=== PATIENT | male | born 1960 | race Caucasian/White ===

== ENCOUNTER 2016-07-18 11:05 | Emergency (ER) | payer MEDICARE, MEDICAID ==
[~2016-07-18] VITALS: Ht 188 cm; Wt 175.0 kg
[~2016-07-18 11:05] MED LIST: ATARAX 25MG25 MG/TAB PO; GLUCOPHAGE500 MG/TAB PO; HCTZ 25MG TAB25 MG PO; K-DUR 2020 MEQ PO; LASIX 20MG TABL20 MG PO; LEXAPRO20 MG PO; LIPITOR 80MG80 MG PO; LORTAB 7.5/5001 TAB PO; NASONEX SPRAY17 GM NS; NITRO-DUR0.4 MG/PAT TD; NORCO 325 MG-7.1 TAB PO; NORVASC 10MG10 MG PO; PRINIVIL20 MG PO; PROAIR HFA0.09 MG/AC IH; RT ADVAIR 228 DISKUS IH; SEROQUEL 2525 MG/TAB PO; ZAROXOLYN5 MG PO; ZETIA 10MG TAB10 MG PO
[2016-07-18 11:10] VITALS: BP 188/86; TEMP 98.6
[2016-07-18] MEDS ORDERED: NORCO 325 MG-51 TAB PO (12:39)
[2016-07-18 13:12] VITALS: PULSE 80
== END 2016-07-18 13:13 | disposition home or self-care (01) ==
LOC: COL.ER 11:05
DX: S43.402A Unspecified sprain of left shoulder joint, initial encounter (principal); S46.912A Strain of unspecified muscle, fascia and tendon at shoulder and upper arm level, left arm, initial encounter; X50.0XXA Overexertion from strenuous movement or load, initial encounter
CPT/HCPCS: J2270; J2550

== ENCOUNTER → 2016-08-26 | Outpatient (CLI) | payer MEDICARE, MEDICAID ==
[~2016-08-26] MED LIST changes: +NORCO 325 MG-51 TAB PO
== END ==
LOC: COL.RAD 13:15
DX: Z53.8 Procedure and treatment not carried out for other reasons (principal)

== ENCOUNTER → 2016-10-06 | Outpatient (CLI) | payer MEDICARE, MEDICAID | LOC: COL.RAD 13:00 | DX: M25.512 Pain in left shoulder (principal) | CPT/HCPCS: J3301; Q9967 ==

== ENCOUNTER → 2017-03-17 | Outpatient (CLI) | payer MEDICARE, MEDICAID | LOC: COL.RAD 08:20 | DX: M25.512 Pain in left shoulder (principal) | CPT/HCPCS: J3301 ==

== ENCOUNTER → 2017-07-19 | Outpatient (REF) ==
[2017-07-19 15:58] LABS: PSA-TOTAL 0.64 ng/mL (0-4)
[2017-07-19 16:24] LABS: THYROID STIMULATING HORMONE 1.15 uIU/mL (0.465-4.680)
== END ==
LOC: ZLAB.WCH 15:09 → ZLAB.STJ 15:09
PROVIDERS: Internal Medicine
DX: Z01.89 Encounter for other specified special examinations (principal)
CPT/HCPCS: G0103

== ENCOUNTER → 2017-08-30 | Outpatient (CLI) | payer MEDICARE, MEDICAID | LOC: COL.RAD 13:00 | DX: M25.512 Pain in left shoulder (principal) | CPT/HCPCS: J3301; Q9967 ==

== ENCOUNTER → 2017-10-10 | Outpatient (REF) | LOC: ZLAB.WCH 16:03 | DX: Z01.89 Encounter for other specified special examinations (principal) ==

== ENCOUNTER → 2017-12-26 | Outpatient (CLI) | payer MEDICARE, MEDICAID | LOC: COL.RAD 10:20 | DX: M25.512 Pain in left shoulder (principal) | CPT/HCPCS: J3301; Q9967 ==

== ENCOUNTER 2018-02-23 16:37 | Outpatient (RCR) | payer OTHER | END 2018-05-24 | disposition home or self-care (01) | LOC: MKS.ESL.PT | DX: E11.42 Type 2 diabetes mellitus with diabetic polyneuropathy (principal) ==

== ENCOUNTER → 2018-04-07 | Outpatient (CLI) | payer MEDICARE, MEDICAID | LOC: COL.RAD 04-04 13:30 | DX: M25.512 Pain in left shoulder (principal) | CPT/HCPCS: J3301; Q9967 ==

== ENCOUNTER 2018-05-05 11:45 | Outpatient (RCR) | payer MEDICARE, MEDICAID | END 2018-05-24 | disposition home or self-care (01) | LOC: MKS.ESL.PT | DX: E11.42 Type 2 diabetes mellitus with diabetic polyneuropathy (principal); Z79.84 Long term (current) use of oral hypoglycemic drugs; Z79.899 Other long term (current) drug therapy | CPT/HCPCS: G8978-GP; G8979-GP ==

== ENCOUNTER → 2018-07-17 | Outpatient (CLI) | payer MEDICARE, MEDICAID | LOC: COL.RAD 13:00 | DX: M25.512 Pain in left shoulder (principal) | CPT/HCPCS: J3301; Q9967 ==

== ENCOUNTER → 2019-01-04 | Outpatient (CLI) | payer MEDICARE, MEDICAID | LOC: COL.RAD 12-25 09:00 | DX: M25.512 Pain in left shoulder (principal) | CPT/HCPCS: J3301; Q9967 ==

== ENCOUNTER 2020-10-21 15:30 | Inpatient (IN) | payer MEDICARE, MEDICAID ==
[2020-10-21] VITALS (66 sets, daily range): BP systolic 184; BP diastolic 91; PULSE 97; TEMP 100.8; O2SAT 71–100
[~2020-10-21] VITALS: Ht 190.5 cm; Wt 155.6 kg
[~2020-10-21 15:30] MED LIST changes: +GLUCOPHAGE XR500 M1 PO; -GLUCOPHAGE500 MG/TAB PO
[2020-10-21 16:36] LABS: ARTERIAL BLD GAS TCO2 CT 20.1; ARTERIAL BLOOD GAS HCO3 19.2 meq/L (22-26); ARTERIAL BLOOD GAS PCO2 30.3 mmHg (35-45); ARTERIAL BLOOD GAS PO2 60.3 mmHg (80-100); ARTERIAL BLOOD GAS pH 7.42 (7.35-7.45)
[2020-10-21 16:45] LABS: GRAN # 2.3 (1.4-6.5); GRAN % 64.7 % (42.2-75.2); HEMATOCRIT 41.5 % (42.0-52.0); HEMOGLOBIN 13.7 g/dl (13.5-18.0); LYMPH # 0.8 (1.2-3.4); LYMPH % 22.6 % (20.0-51.0); MEAN CELL VOLUME 81 fl (80.0-100.0); MEAN CORPUSCULAR HEMOGLOBIN 27 pg (27.0-31.0); MEAN CORPUSCULAR HGB CONC 33 g/dl (33.0-37.0); MEAN PLATELET VOLUME 9.8 fl (7.4-10.4); MONO # 0.4 (0.1-0.6); MONO % 11.9 % (1.7-9.3); PLATELET COUNT 125 K/mm3 (130-400); RED BLOOD COUNT 5.11 M/mm3 (4.20-5.60); REDCELL DISTRIBUTION WIDTH-CV 13.4 % (11.5-14.5)
[2020-10-21 16:50] LABS: ALBUMIN 3.9 gm/dL (3.5-5.0); BILIRUBIN,TOTAL 1.2 mg/dL (0.0-1.0); CALCIUM 8.2 mg/dL (8.4-10.2); CREATININE, serum 0.84 (0.66-1.25); TOTAL PROTEIN 7.4 gm/dL (6.4-8.2)
[2020-10-21 17:12] LABS: COLLECTION METHOD CLEAN CATCH
[2020-10-21 17:33] LABS: TROPONIN-I 0.101 ng/mL (0.000-0.035)
[2020-10-21 18:00] LABS: AMORPHOUS CRYSTAL Present /uL; PH 5 (5-8); SQUAMOUS EPITHELIAL None Seen /hpf; URINE APPEARANCE Hazy; URINE BACTERIA None Seen /hpf; URINE BILIRUBIN Negative (NEGATIVE); URINE BLOOD 2+ (NEGATIVE); URINE COLOR Yellow; URINE GLUCOSE 3+ (NEGATIVE); URINE KETONE 2+ (NEGATIVE); URINE LEUKOCYTE ESTERASE Negative (NEGATIVE); URINE NITRATE Negative (NEGATIVE); URINE PROTEIN(semi-quant) 2+ (NEGATIVE); URINE UROBILINOGEN Negative (NEGATIVE)
[2020-10-21 22:17] LABS: ARTERIAL BLD GAS O2 SATURATION 97.1 % (92-100); ARTERIAL BLOOD GAS BASE EXCESS -1.3 (-2-2); ARTERIAL BLOOD GAS PCO2 33.2 mmHg (35-45); ARTERIAL BLOOD GAS PO2 89.6 mmHg (80-100); ARTERIAL BLOOD GAS pH 7.44 (7.35-7.45)
--- NOTE | 2020-10-21 22:25 | NUR ---
Received report from ED nurseVeronica.
--- NOTE | 2020-10-21 22:42 | NUR ---
Patient arrives to ICU room 6 via wheelchair. Patient is able to ambulate with one-person assist to ICU bed. Initial BP of 184/91 with HR 97. All other vitals within normal limits. Patient arrives on BiPap, receiving 16/10 with 100% FiO2. Patient tolerating well. He is tachypneic, but does not appear labored or in distress. Arrives with one peripheral 20G IV to the right forearm. No fluids infusing at this time. Denies any pain. BLE noted to be red and edematous, roughly 2+, the right being larger than the left. The right pérez has a quarter-sized scab, some drainage noted. Feet are 2+ bilaterally, dry, and intact. No other skin issues noted.
--- NOTE | 2020-10-21 23:00 | NUR ---
Patient belongings include street clothes, shoes, a cell phone, glasses, and a single silver hoop earring in the left ear. Patient denies having hearing aids or dentures. He states his girlfriend, Amanda, took his wallet home. All belongings placed in patient closet per his request.
--- NOTE | 2020-10-21 23:55 | NUR ---
Patient uses call light asking for assistance to bathroom. Staff outside of room when patient called. Patient refused to wait for staff to enter room before removing BiPap mask and attempting to sit on the edge of bed. Staff at bedside within 3 minutes. Patient tachypneic, tachycardic, and diaphoretic from effort of sitting up. Oxygen saturations mid-high 80s. He takes several minutes to recover. Юлия, hospitalist, notified. Received orders to insert darnell catheter. A 16Fr darnell placed at approximately 2340, obtaining 850mL of yellow urine with sediment present upon placement. Юлия notified. Bed in lowest position, all alarms are on. Call light within reach.
[2020-10-22] VITALS (541 sets, daily range): BP systolic 61–167; BP diastolic 30–91; PULSE 85–100; TEMP 98.8–100.5; O2SAT 36–100
[2020-10-22 06:36] LABS: GRAN # 2.3 (1.4-6.5); GRAN % 68.8 % (42.2-75.2); HEMATOCRIT 41.2 % (42.0-52.0); HEMOGLOBIN 13.8 g/dl (13.5-18.0); LYMPH # 0.7 (1.2-3.4); LYMPH % 20.2 % (20.0-51.0); MEAN CELL VOLUME 80 fl (80.0-100.0); MEAN CORPUSCULAR HEMOGLOBIN 27 pg (27.0-31.0); MEAN CORPUSCULAR HGB CONC 34 g/dl (33.0-37.0); MEAN PLATELET VOLUME 9.3 fl (7.4-10.4); MONO # 0.4 (0.1-0.6); MONO % 10.4 % (1.7-9.3); PLATELET COUNT 125 K/mm3 (130-400); RED BLOOD COUNT 5.15 M/mm3 (4.20-5.60); REDCELL DISTRIBUTION WIDTH-CV 13.3 % (11.5-14.5)
[2020-10-22 06:50] LABS: CREATININE, serum 0.82 (0.66-1.25); POTASSIUM 3.7 mmol/L (3.4-5.0)
[2020-10-22 07:25] LABS: TROPONIN-I 0.142 ng/mL (0.000-0.035)
--- NOTE | 2020-10-22 10:55 | NUR ---
Lovely RN asked pt if he had a designated DPOA-pt responded that he did not. When asked if he wanted to establish a DPOA pt stated yes and designtated Amanda Cardenas. Pt signed completed form. Katt [place] notified.
--- NOTE | 2020-10-22 16:30 | NUR ---
housekeeping department worker spoke with patient's life partner, Mary Jane Cardenas [phone] and discussed need for legal next of kin. Worker advised that patient was able to verbalize he wanted Mary Jane to be his durable power of disability attorney and completed the document. Worker emailed this document and another form and encouraged patient to complete one for herself. Zhao states together she and patient have 8 daughters. Worker stressed that we will need to limit callers to the ICU and designate mary jane. Mary Jane verbalized understanding of the above information. Case management will follow and assist with securing a safe discharge plan.
--- NOTE | 2020-10-22 19:21 | NUR ---
175- PT spo2 probe changed out due to varying percentages being shown on monitor. PT SPO2 maintaining at 85% on [address] Torres notified, orders received for intubation. 180- Anesthesia paged 180- anesthesia returns call and will head in. 180- RT to patient room. Hospitalist notified of patient condition 1808- Verbal consent received from patient with Two RNs present to confirm. 1811- Latrell Swain CRNA to room. PT Vitals currently 71% 173/105 87. 182- Time out completed with RT, RN and GRAIN BUYER 1822- GRAIN BUYER gave fentanyl and Succinylcholine 1824- 1 mg vecuronium given by GRAIN BUYER 182- 200mg Propofol given by GRAIN BUYER 1825- ETT in place at 24 teeth size 8.0. Bilateral breath sounds ausculated 1828- 9 mg vecuronium given by GRAIN BUYER for a total of 10mg 1832- OG placed 67 teeth 18fr 1833- Xray to room.
--- NOTE | 2020-10-22 19:29 | NUR ---
Report given to JAROD Lora.
[2020-10-22 20:30] LABS: ARTERIAL BLD GAS O2 SATURATION 86.7 % (92-100); ARTERIAL BLD GAS TCO2 CT 29.8; ARTERIAL BLOOD GAS BASE EXCESS 2.7 (-2-2); ARTERIAL BLOOD GAS HCO3 28.4 meq/L (22-26); ARTERIAL BLOOD GAS PCO2 47.1 mmHg (35-45); ARTERIAL BLOOD GAS PO2 51.1 mmHg (80-100)
[2020-10-22 22:10] LABS: GASTROCCULT POSITIVE; pH GASTRIC CONTENTS 1
[2020-10-23] VITALS (820 sets, daily range): BP systolic 98–158; BP diastolic 67–87; PULSE 80–103; TEMP 98.4–100.5; O2SAT 71–100
--- NOTE | 2020-10-23 00:50 | NUR ---
RT WAS CALLED TO BEDSIDE TO ASSIST IN INTUBATION. LAUNDRY SORTER SUCCESSFULLY INTUBATED AT 1826, WITH AN 8.0 ETT 24 @ TEETH. VENT SETTINGS WERE GIVEN BY RN PER THE REQUEST OF . PEEP WAS TITRATED IMMEDIATELY DUE TO HYPOXIC EPISODES. ETT WAS ALSO ADVANCED 2CM POST INTUBATION, LEAVING AT 26 @ TEETH.
[2020-10-23 04:55] LABS: GRAN # 3.8 (1.4-6.5); GRAN % 73.2 % (42.2-75.2); HEMATOCRIT 40.6 % (42.0-52.0); HEMOGLOBIN 13.6 g/dl (13.5-18.0); LYMPH # 0.9 (1.2-3.4); LYMPH % 17.8 % (20.0-51.0); MEAN CELL VOLUME 81 fl (80.0-100.0); MEAN CORPUSCULAR HEMOGLOBIN 27 pg (27.0-31.0); MEAN CORPUSCULAR HGB CONC 34 g/dl (33.0-37.0); MEAN PLATELET VOLUME 9.6 fl (7.4-10.4); MONO # 0.5 (0.1-0.6); MONO % 8.6 % (1.7-9.3); PLATELET COUNT 160 K/mm3 (130-400); RED BLOOD COUNT 5.03 M/mm3 (4.20-5.60); REDCELL DISTRIBUTION WIDTH-CV 13.6 % (11.5-14.5)
[2020-10-23 05:14] LABS: ALBUMIN 3.4 gm/dL (3.5-5.0); BILIRUBIN,TOTAL 0.9 mg/dL (0.0-1.0); CALCIUM 7.5 mg/dL (8.4-10.2); CREATININE, serum 1.2 (0.66-1.25); MAGNESIUM 1.9 mg/dL (1.6-2.3); PHOSPHOROUS 4.3 mg/dL (2.5-4.5); POTASSIUM 3.4 mmol/L (3.4-5.0); TOTAL PROTEIN 6.9 gm/dL (6.4-8.2)
[2020-10-23 05:15] LABS: ARTERIAL BLD GAS O2 SATURATION 82.1 % (92-100); ARTERIAL BLD GAS TCO2 CT 29.3; ARTERIAL BLOOD GAS BASE EXCESS 2.4 (-2-2); ARTERIAL BLOOD GAS HCO3 27.9 meq/L (22-26); ARTERIAL BLOOD GAS PCO2 46.4 mmHg (35-45)
[2020-10-23 05:16] LABS: ARTERIAL BLOOD GAS PO2 45.6 mmHg (80-100)
--- NOTE | 2020-10-23 05:30 | NUR ---
Patient in prone position. No sedation vacation performed at this time.
--- NOTE | 2020-10-23 07:38 | NUR ---
Report given to JAROD Redman.
--- NOTE | 2020-10-23 17:00 | NUR ---
No sedation vacation at this time DT Vecuronium drip infusing.
--- NOTE | 2020-10-23 21:00 | NUR ---
SPOKE WITH DOM (GIRLFRIEND) GAVE UPDATE AND ANSWERED QUESTIONS.
[2020-10-24] VITALS (931 sets, daily range): BP systolic 120–146; BP diastolic 75–83; PULSE 85–111; TEMP 98.9–99; O2SAT 46–100
--- NOTE | 2020-10-24 05:00 | NUR ---
UNABLE TO COMPLETE SEDATION VACATION AT THIS TIME DUE TO PRONE POSITION AND VENT SETTINGS
[2020-10-24 05:03] LABS: HEMATOCRIT 44.8 % (42.0-52.0); HEMOGLOBIN 14.6 g/dl (13.5-18.0); MEAN CELL VOLUME 83 fl (80.0-100.0); MEAN CORPUSCULAR HEMOGLOBIN 27 pg (27.0-31.0); MEAN CORPUSCULAR HGB CONC 33 g/dl (33.0-37.0); MEAN PLATELET VOLUME 9.4 fl (7.4-10.4); PLATELET COUNT 171 K/mm3 (130-400); REDCELL DISTRIBUTION WIDTH-CV 13.6 % (11.5-14.5)
[2020-10-24 05:09] LABS: CALCIUM 7.3 mg/dL (8.4-10.2); CREATININE, serum 1.35 (0.66-1.25); MAGNESIUM 2.1 mg/dL (1.6-2.3); PHOSPHOROUS 5.5 mg/dL (2.5-4.5); POTASSIUM 3.5 mmol/L (3.4-5.0)
[2020-10-24 06:42] LABS: BAND 3 % (0-10); LYMPHOCYTE 27 % (20.0-51.0); NEUTROPHILS 65 % (42.0-75.2); PLATELET ESTIMATE NORMAL (NORMAL)
[2020-10-24 09:44] LABS: ARTERIAL BLD GAS O2 SATURATION 95.1 % (92-100); ARTERIAL BLD GAS TCO2 CT 38.8; ARTERIAL BLOOD GAS BASE EXCESS 5.2 (-2-2); ARTERIAL BLOOD GAS HCO3 36.2 meq/L (22-26); ARTERIAL BLOOD GAS pH 7.25 (7.35-7.45)
[2020-10-24 09:49] LABS: ARTERIAL BLOOD GAS PCO2 85.4 mmHg (35-45)
[2020-10-24 12:09] LABS: ARTERIAL BLD GAS O2 SATURATION 95.5 % (92-100); ARTERIAL BLD GAS TCO2 CT 32.9; ARTERIAL BLOOD GAS BASE EXCESS 4.6 (-2-2); ARTERIAL BLOOD GAS HCO3 31.2 meq/L (22-26); ARTERIAL BLOOD GAS PCO2 54.4 mmHg (35-45); ARTERIAL BLOOD GAS pH 7.38 (7.35-7.45)
--- NOTE | 2020-10-24 17:00 | NUR ---
Patient becomes restless with stimulation, able to settle on own. No sedation vacation at this time, will see if able to before end of shift
[2020-10-24 22:51] LABS: ARTERIAL BLD GAS O2 SATURATION 98.4 % (92-100); ARTERIAL BLD GAS TCO2 CT 29.9; ARTERIAL BLOOD GAS BASE EXCESS 0.6 (-2-2); ARTERIAL BLOOD GAS HCO3 28.2 meq/L (22-26); ARTERIAL BLOOD GAS PCO2 56.2 mmHg (35-45); ARTERIAL BLOOD GAS PO2 118.6 mmHg (80-100); ARTERIAL BLOOD GAS pH 7.32 (7.35-7.45)
[2020-10-25] VITALS (706 sets, daily range): BP systolic 130–162; BP diastolic 79–99; PULSE 85–149; TEMP 97.5–98.8; O2SAT 93–100
[2020-10-25 04:58] LABS: ARTERIAL BLD GAS O2 SATURATION 98.7 % (92-100); ARTERIAL BLD GAS TCO2 CT 32.9; ARTERIAL BLOOD GAS BASE EXCESS 6.4 (-2-2); ARTERIAL BLOOD GAS HCO3 31.5 meq/L (22-26); ARTERIAL BLOOD GAS PO2 131.1 mmHg (80-100); ARTERIAL BLOOD GAS pH 7.44 (7.35-7.45)
[2020-10-25 09:19] LABS: HEMOGLOBIN 14.7 g/dl (13.5-18.0); MEAN CELL VOLUME 83 fl (80.0-100.0); MEAN CORPUSCULAR HEMOGLOBIN 27 pg (27.0-31.0); MEAN CORPUSCULAR HGB CONC 33 g/dl (33.0-37.0); MEAN PLATELET VOLUME 10.1 fl (7.4-10.4); PLATELET COUNT 153 K/mm3 (130-400); REDCELL DISTRIBUTION WIDTH-CV 13.9 % (11.5-14.5)
[2020-10-25 09:33] LABS: CALCIUM 7.3 mg/dL (8.4-10.2); CREATININE, serum 1.31 (0.66-1.25); MAGNESIUM 2.3 mg/dL (1.6-2.3); PHOSPHOROUS 3.7 mg/dL (2.5-4.5); POTASSIUM 3.5 mmol/L (3.4-5.0)
[2020-10-25 11:26] LABS: BAND 1 % (0-10); HYPOCHROMIA 1+; LYMPHOCYTE 19 % (20.0-51.0); NEUTROPHILS 76 % (42.0-75.2)
[2020-10-25 11:27] LABS: PLATELET ESTIMATE NORMAL (NORMAL)
--- NOTE | 2020-10-25 14:43 | NUR ---
Sw met with JAROD Alvarado, Dr. Kellogg, and pt family memeber Mary Jane [phone] outside in front on the ER at 945 am to speak about goals of care. The pt will have another care of goal mid next week. Mary Jane is wanting full care still and everyone agreed. Sw did not speak to mary jane about end of life care, due to care team agreed to full strength care. Sw to follow and await for further recommendations.
[2020-10-26] VITALS (1373 sets, daily range): BP systolic 106–173; BP diastolic 57–92; PULSE 81–111; TEMP 98.5–101.1; O2SAT 81–100
[2020-10-26 03:03] LABS: MAGNESIUM 2.6 mg/dL (1.6-2.3); PHOSPHOROUS 2.5 mg/dL (2.5-4.5); POTASSIUM 3.4 mmol/L (3.4-5.0)
--- NOTE | 2020-10-26 05:50 | NUR ---
VEC JUST PUT ON STANDBY AT 0400. SLOWLY TITRATING SEDATION TO FOLLOW. PT CURRENTLY DOES NOT FOLLOW ANY COMMANDS/RESPOND TO STIMULI. PUPILS REACTIVE AND EQUAL TO LIGHT BUT NO CORNEAL REFLEX NOTED.
[2020-10-26 05:57] LABS: ARTERIAL BLD GAS O2 SATURATION 96.3 % (92-100); ARTERIAL BLD GAS TCO2 CT 38.1; ARTERIAL BLOOD GAS BASE EXCESS 9.1 (-2-2); ARTERIAL BLOOD GAS HCO3 36.3 meq/L (22-26); ARTERIAL BLOOD GAS PCO2 60.6 mmHg (35-45); ARTERIAL BLOOD GAS PO2 79.9 mmHg (80-100)
[2020-10-26 06:03] LABS: HEMOGLOBIN 13.7 g/dl (13.5-18.0); MEAN CELL VOLUME 86 fl (80.0-100.0); MEAN CORPUSCULAR HEMOGLOBIN 28 pg (27.0-31.0); MEAN CORPUSCULAR HGB CONC 32 g/dl (33.0-37.0); MEAN PLATELET VOLUME 10.4 fl (7.4-10.4); PLATELET COUNT 185 K/mm3 (130-400); RED BLOOD COUNT 4.98 M/mm3 (4.20-5.60); REDCELL DISTRIBUTION WIDTH-CV 13.9 % (11.5-14.5)
[2020-10-26 06:12] LABS: BILIRUBIN,TOTAL 0.8 mg/dL (0.0-1.0); CALCIUM 7.2 mg/dL (8.4-10.2); CREATININE, serum 1.34 (0.66-1.25); POTASSIUM 3.4 mmol/L (3.4-5.0); TOTAL PROTEIN 6.4 gm/dL (6.4-8.2)
[2020-10-26 06:54] LABS: BAND 8 % (0-10); LYMPHOCYTE 23 % (20.0-51.0); METAMYELOCYTE 3 % (0-0); MYELOCYTE 1 % (0-0); NEUTROPHILS 60 % (42.0-75.2); PLATELET ESTIMATE INCREASED (NORMAL)
[2020-10-27] VITALS (1155 sets, daily range): BP systolic 118–185; BP diastolic 78–98; PULSE 74–156; TEMP 97.8–99; O2SAT 85–100
[2020-10-27 04:31] LABS: HEMATOCRIT 43.2 % (42.0-52.0); HEMOGLOBIN 13.4 g/dl (13.5-18.0); MEAN CELL VOLUME 87 fl (80.0-100.0); MEAN CORPUSCULAR HEMOGLOBIN 27 pg (27.0-31.0); MEAN CORPUSCULAR HGB CONC 31 g/dl (33.0-37.0); MEAN PLATELET VOLUME 9.7 fl (7.4-10.4); PLATELET COUNT 186 K/mm3 (130-400); RED BLOOD COUNT 4.97 M/mm3 (4.20-5.60); REDCELL DISTRIBUTION WIDTH-CV 14.3 % (11.5-14.5)
[2020-10-27 04:44] LABS: ALBUMIN 3.2 gm/dL (3.5-5.0); BILIRUBIN,TOTAL 0.8 mg/dL (0.0-1.0); CALCIUM 7.6 mg/dL (8.4-10.2); CREATININE, serum 1.22 (0.66-1.25); MAGNESIUM 2.7 mg/dL (1.6-2.3); PHOSPHOROUS 3.2 mg/dL (2.5-4.5); POTASSIUM 3.7 mmol/L (3.4-5.0); TOTAL PROTEIN 6.7 gm/dL (6.4-8.2)
[2020-10-27 04:51] LABS: PRE ALBUMIN 16.5 mg/dL (17.6-36.0)
[2020-10-27 05:16] LABS: BAND 5 % (0-10); LYMPHOCYTE 46 % (20.0-51.0); NEUTROPHILS 46 % (42.0-75.2); PLATELET ESTIMATE NORMAL (NORMAL)
[2020-10-27 05:50] LABS: ARTERIAL BLD GAS TCO2 CT 38.5; ARTERIAL BLOOD GAS BASE EXCESS 10.1 (-2-2); ARTERIAL BLOOD GAS HCO3 36.7 meq/L (22-26); ARTERIAL BLOOD GAS PCO2 56.5 mmHg (35-45); ARTERIAL BLOOD GAS pH 7.43 (7.35-7.45)
[2020-10-27 05:51] LABS: ARTERIAL BLOOD GAS PO2 140.1 mmHg (80-100)
--- NOTE | 2020-10-27 06:15 | NUR ---
HAVE HAD DIFFICULTY KEEPING PT CALM AND BREATHING WITH VENT SETTINGS. PT PURPOSEFUL BUT EASILY AGITATED. WILL NOT REDUCE SEDATION FOR PT SAFETY.
--- NOTE | 2020-10-27 07:25 | NUR ---
BEDSIDE SHIFT REPORT RECEIVED FROM JAROD HOLDER. PATIENT IS CURRENTLY SEDATED AND INTUBATED AND PRONED. WILL BE SWITCHING TO SUPINE WITH PHYSICAL THERAPY. FABY PICC LINE WILL NEED REPLACING TODAY. WILL ADDRESS. MILTON CATHETER STILL IN PLACE. PATENT AND DRAINING TO GRAVITY. SEE GTT TITRATION FLOWSHEET.
--- NOTE | 2020-10-27 10:57 | NUR ---
CALLED RANDELL (GIRLFRIEND) AND UPDATED REGARDING PATIENT STATUS.
[2020-10-27 12:17] LABS: COLLECTION METHOD CLEAN CATCH
[2020-10-27 12:25] LABS: MUCOUS Present /lpf; PH 5 (5-8); SQUAMOUS EPITHELIAL 0-2 /hpf; URINE APPEARANCE Cloudy; URINE BACTERIA None Seen /hpf; URINE BILIRUBIN Negative (NEGATIVE); URINE BLOOD 2+ (NEGATIVE); URINE COLOR Yellow; URINE GLUCOSE Negative (NEGATIVE); URINE KETONE Negative (NEGATIVE); URINE LEUKOCYTE ESTERASE Negative (NEGATIVE); URINE NITRATE Negative (NEGATIVE); URINE PROTEIN(semi-quant) 1+ (NEGATIVE); URINE RBC >50 /hpf; URINE UROBILINOGEN Negative (NEGATIVE)
--- NOTE | 2020-10-27 14:10 | NUR ---
NOTIFIED VIA TELEMETRY THAT PATIENT WAS IN 140s. CONTACTED CARDIOLOGY. ORDERS RECEIVED. PATIENT RECOVERED NICELY. NOW IN 90s.
--- NOTE | 2020-10-27 17:27 | NUR ---
NO SEDATION VACATION TODAY. PATIENT HAS BEEN RESTLESS ON MAXIMUM SEDATION ALL DAY.
[2020-10-28] VITALS (1058 sets, daily range): BP systolic 124–165; BP diastolic 64–87; PULSE 69–91; TEMP 97.2–100; O2SAT 75–100
[2020-10-28 02:31] LABS: HEMATOCRIT 40.7 % (42.0-52.0); HEMOGLOBIN 12.4 g/dl (13.5-18.0); MEAN CELL VOLUME 87 fl (80.0-100.0); MEAN CORPUSCULAR HEMOGLOBIN 27 pg (27.0-31.0); MEAN CORPUSCULAR HGB CONC 31 g/dl (33.0-37.0); MEAN PLATELET VOLUME 10.2 fl (7.4-10.4); PLATELET COUNT 200 K/mm3 (130-400); RED BLOOD COUNT 4.66 M/mm3 (4.20-5.60); REDCELL DISTRIBUTION WIDTH-CV 14.3 % (11.5-14.5)
[2020-10-28 02:41] LABS: CALCIUM 7.6 mg/dL (8.4-10.2); CREATININE, serum 1.23 (0.66-1.25); POTASSIUM 4.7 mmol/L (3.4-5.0)
[2020-10-28 03:06] LABS: BAND 6 % (0-10); EOSINOPHIL 1 % (0-4); HYPOCHROMIA 3+; LYMPHOCYTE 21 % (20.0-51.0); METAMYELOCYTE 4 % (0-0); NEUTROPHILS 64 % (42.0-75.2); PLATELET ESTIMATE NORMAL (NORMAL)
[2020-10-28 05:57] LABS: ARTERIAL BLD GAS O2 SATURATION 93.5 % (92-100); ARTERIAL BLD GAS TCO2 CT 40.3; ARTERIAL BLOOD GAS BASE EXCESS 11.5 (-2-2); ARTERIAL BLOOD GAS HCO3 38.5 meq/L (22-26); ARTERIAL BLOOD GAS PCO2 60.1 mmHg (35-45); ARTERIAL BLOOD GAS PO2 67.2 mmHg (80-100); ARTERIAL BLOOD GAS pH 7.42 (7.35-7.45)
--- NOTE | 2020-10-28 06:52 | NUR ---
ATTEMPTED TO DECREASE FENTANYL DRIP FROM >200MCG/HR. WAS SUCCESSFUL USING PRECEDEX UNTIL EARLY AM, PT BEGAN TAKING LARGE TIDAL VOLUMES FOLLWED BY SHALLOW/SMALL VOLUMES. SPO2 REMAINED STABLE BUT IRREGULAR RESPIRATIONS NOTED CONTINUOUSLY. GAVE VEC PUSH AND WILL ATTEMPT TO INREASE PRECEDEX.
--- NOTE | 2020-10-28 07:42 | NUR ---
BEDSIDE SHIFT REPORT RECEIVED FROM JAROD HOLDER. PATIENT IS CURRENTLY PRONED, SEDATED AND INTUBATED. VSS WITH SLIGHT HYPERTENTION IN 150s SYSTOLIC. FABY PICC IN PLACE, PATENT WITH GOOD BLOOD RETURN. MILTON CATHETER IN PLACE, PATENT AND DRAINING TO GRAVITY. SEE GTT TITRATION FLOWSHEET.
--- NOTE | 2020-10-28 08:40 | NUR ---
DR. GOEL AT BEDSIDE. SPOKE REGARDING PLAN OF CARE AND ORDERS RECEIVED.
[2020-10-28 11:10] LABS: ARTERIAL BLD GAS O2 SATURATION 85.1 % (92-100); ARTERIAL BLD GAS TCO2 CT 40.7; ARTERIAL BLOOD GAS HCO3 38.8 meq/L (22-26); ARTERIAL BLOOD GAS PCO2 61.7 mmHg (35-45); ARTERIAL BLOOD GAS PO2 49.6 mmHg (80-100); ARTERIAL BLOOD GAS pH 7.42 (7.35-7.45)
--- NOTE | 2020-10-28 11:13 | NUR ---
PATIENT NOT MAINTAINING SATURATION LEVEL WHILE SUPINE AND SEEMS TO BE BREATHING OVER VENT. NOTIFIED RESPIRATORY THERAPY. DR. GOEL AT BEDSIDE. ORDERS FOR ABGs AND BREATHING TREATMENT. WILL ASSES RESULTS OF ABGs
--- NOTE | 2020-10-28 11:48 | NUR ---
HAVE RESOLVED TO PRONE TO HELP WITH VENTILATION. RANDELL (GIRLFRIEND) UPDATED REGARDING PATIENT'S CURRENT STATUS. PATIENT ORDER FOR ARTERIAL LINE CONSENT RECEIVED FROM HER. WILL BE PLACING LINE PRIOR TO PRONING.
--- NOTE | 2020-10-28 12:45 | NUR ---
Dr. Torres requested to have PICC tip location confirmed with radiologist. I visted with Dr. Gomez and he confirmed this am chest x ray PICC tip location as cavo-atrial junction. Will await next chest x ray.
--- NOTE | 2020-10-28 14:25 | NUR ---
PATIENT SUCCESSFULLY PRONED AND TOLERATING. SATURATION LEVELS IMPROVED SIGNIFICANTLY.
--- NOTE | 2020-10-28 17:56 | NUR ---
NO SEDATION VACATION TODAY, PATIENT IS FAR TOO RESTLESS AND WOULD BE UNSAFE TO HIMSELF.
--- NOTE | 2020-10-28 18:07 | NUR ---
ATTEMPTED TO CALL PATIENT'S GIRLFRIEND WITH UPDATE ON SATURATION LEVELS. NO ANSWER. LEFT MESSAGE.
--- NOTE | 2020-10-28 18:39 | NUR ---
RANDELL (GIRLFRIEND) CALLED BACK AND THIS NURSE UPDATED HER REGARDING PATIENT'S STATUS.
[2020-10-29] VITALS (979 sets, daily range): BP systolic 131–171; BP diastolic 71–81; PULSE 66–95; TEMP 98–99; O2SAT 79–100
[2020-10-29 05:10] LABS: ARTERIAL BLD GAS O2 SATURATION 97.8 % (92-100); ARTERIAL BLD GAS TCO2 CT 37.8; ARTERIAL BLOOD GAS BASE EXCESS 7.9 (-2-2); ARTERIAL BLOOD GAS HCO3 35.9 meq/L (22-26); ARTERIAL BLOOD GAS PCO2 62.8 mmHg (35-45); ARTERIAL BLOOD GAS PO2 104.5 mmHg (80-100); ARTERIAL BLOOD GAS pH 7.38 (7.35-7.45)
[2020-10-29 05:20] LABS: HEMATOCRIT 39.9 % (42.0-52.0); HEMOGLOBIN 11.9 g/dl (13.5-18.0); MEAN CELL VOLUME 90 fl (80.0-100.0); MEAN CORPUSCULAR HEMOGLOBIN 27 pg (27.0-31.0); MEAN CORPUSCULAR HGB CONC 30 g/dl (33.0-37.0); MEAN PLATELET VOLUME 10.1 fl (7.4-10.4); PLATELET COUNT 184 K/mm3 (130-400); RED BLOOD COUNT 4.44 M/mm3 (4.20-5.60); REDCELL DISTRIBUTION WIDTH-CV 13.9 % (11.5-14.5)
[2020-10-29 05:31] LABS: CALCIUM 7.7 mg/dL (8.4-10.2); CREATININE, serum 1.23 (0.66-1.25); POTASSIUM 4.8 mmol/L (3.4-5.0)
[2020-10-29 06:21] LABS: BAND 8 % (0-10); EOSINOPHIL 3 % (0-4); HYPOCHROMIA 3+; LYMPHOCYTE 27 % (20.0-51.0); METAMYELOCYTE 3 % (0-0); NEUTROPHILS 51 % (42.0-75.2); PLATELET ESTIMATE NORMAL (NORMAL)
--- NOTE | 2020-10-29 06:26 | NUR ---
DID NOT TITRATE DRIPS DOWN DUE TO PT OVERBREATHING VENT AND TAKING SHALLOW FOLLOWED BY DEEP BREATHS WHERE VT RANGE FROM 0-1100.
--- NOTE | 2020-10-29 07:00 | NUR ---
PT PRONED AND ON VENT. PT ON VERSED, PRECEDEX, FENT, AND AMIO. VSS. WILL CONTINUE TO MONTIOR.
--- NOTE | 2020-10-29 17:00 | NUR ---
PT PRONED SO NO SEDATION VACATION AT THIS TIME. PT DOES MOVE ALL EXTREMETIES BUT DOES NOT FOLLOW COMMANDS. WILL CONTINUE TO MONTIOR.
--- NOTE | 2020-10-29 20:00 | NUR ---
Assessment complete and charted. On vent and proned.
--- NOTE | 2020-10-29 21:24 | NUR ---
Patient's significant otheMuna, called for update. Update given, questions invited and answered. ([phone])
--- NOTE | 2020-10-29 23:00 | NUR ---
Ventilator exchanged at this time. Patient bagged during exchanged. Tolerated well without complications. Was given vecoronium prior to for over breathing ventilator.
[2020-10-30] VITALS (1360 sets, daily range): BP systolic 127–193; BP diastolic 57–84; PULSE 60–78; TEMP 98.7–99; O2SAT 83–100
[2020-10-30 05:07] LABS: ARTERIAL BLD GAS TCO2 CT 35.3; ARTERIAL BLOOD GAS BASE EXCESS 6.8 (-2-2); ARTERIAL BLOOD GAS HCO3 33.6 meq/L (22-26); ARTERIAL BLOOD GAS PCO2 56.9 mmHg (35-45); ARTERIAL BLOOD GAS PO2 68.3 mmHg (80-100); ARTERIAL BLOOD GAS pH 7.39 (7.35-7.45)
[2020-10-30 05:23] LABS: HEMOGLOBIN 11.9 g/dl (13.5-18.0); MEAN CELL VOLUME 90 fl (80.0-100.0); MEAN CORPUSCULAR HEMOGLOBIN 27 pg (27.0-31.0); MEAN CORPUSCULAR HGB CONC 30 g/dl (33.0-37.0); MEAN PLATELET VOLUME 10.6 fl (7.4-10.4); PLATELET COUNT 199 K/mm3 (130-400); RED BLOOD COUNT 4.47 M/mm3 (4.20-5.60); REDCELL DISTRIBUTION WIDTH-CV 13.7 % (11.5-14.5)
[2020-10-30 05:32] LABS: CREATININE, serum 1.2 (0.66-1.25); POTASSIUM 5.1 mmol/L (3.4-5.0)
[2020-10-30 05:48] LABS: BAND 1 % (0-10); EOSINOPHIL 7 % (0-4); LYMPHOCYTE 18 % (20.0-51.0); MYELOCYTE 3 % (0-0); NEUTROPHILS 69 % (42.0-75.2); PLATELET ESTIMATE NORMAL (NORMAL)
--- NOTE | 2020-10-30 05:48 | NUR ---
Patient prone sedation vacation not preformed
[2020-10-30 05:49] LABS: ANISOCYTOSIS 1+; HYPOCHROMIA 2+
--- NOTE | 2020-10-30 06:12 | NUR ---
Patient darnell replaced during night due to sediment and clogged. Urine output adequate. Vecoronium given PRN thoughout night for overbreathing vent. Remains on sedation and prone this AM.
--- NOTE | 2020-10-30 07:00 | NUR ---
PT IN PRONE POSITION. PT INTUBATED AND SEDATED. PT ON AMIO, PRECEDEX, VERSED, AND FENT. VSS. WILL CONITNUE TO NUHA.
--- NOTE | 2020-10-30 07:31 | NUR ---
Report given to JAROD Lafleur
--- NOTE | 2020-10-30 09:04 | NUR ---
RULA CURTIS RN NOTIFIED TEO MANCERA OF CONSULT.
--- NOTE | 2020-10-30 17:00 | NUR ---
NO SEDATION VACATION AT THIS TIME D/T PT IN PRONE POSISITION.
--- NOTE | 2020-10-30 20:00 | NUR ---
Assessment complete and charted. Remains sedated on vent.
[2020-10-31] VITALS (1292 sets, daily range): BP systolic 133–190; BP diastolic 65–82; PULSE 61–79; TEMP 96.8–99.1; O2SAT 73–100
--- NOTE | 2020-10-31 01:00 | NUR ---
Insulin gtt started at 0030. Blood sugar x2 above 220. See additional nursing order. Elsie MANCERA updated.
--- NOTE | 2020-10-31 05:10 | NUR ---
Sedation vacation not preformed patient is prone
[2020-10-31 05:13] LABS: HEMATOCRIT 38.4 % (42.0-52.0); HEMOGLOBIN 11.5 g/dl (13.5-18.0); MEAN CELL VOLUME 88 fl (80.0-100.0); MEAN CORPUSCULAR HEMOGLOBIN 26 pg (27.0-31.0); MEAN CORPUSCULAR HGB CONC 30 g/dl (33.0-37.0); MEAN PLATELET VOLUME 10.6 fl (7.4-10.4); PLATELET COUNT 220 K/mm3 (130-400); RED BLOOD COUNT 4.35 M/mm3 (4.20-5.60); REDCELL DISTRIBUTION WIDTH-CV 13.3 % (11.5-14.5)
[2020-10-31 05:16] LABS: ARTERIAL BLD GAS O2 SATURATION 97.2 % (92-100); ARTERIAL BLD GAS TCO2 CT 37.4; ARTERIAL BLOOD GAS BASE EXCESS 9.3 (-2-2); ARTERIAL BLOOD GAS HCO3 35.8 meq/L (22-26); ARTERIAL BLOOD GAS PCO2 55.1 mmHg (35-45); ARTERIAL BLOOD GAS PO2 94.2 mmHg (80-100); ARTERIAL BLOOD GAS pH 7.43 (7.35-7.45)
[2020-10-31 05:22] LABS: CALCIUM 8.8 mg/dL (8.4-10.2); CREATININE, serum 1.07 (0.66-1.25); POTASSIUM 4.6 mmol/L (3.4-5.0)
[2020-10-31 06:08] LABS: BAND 29 % (0-10); EOSINOPHIL 2 % (0-4); LYMPHOCYTE 38 % (20.0-51.0); MYELOCYTE 1 % (0-0); NEUTROPHILS 28 % (42.0-75.2)
[2020-10-31 06:09] LABS: PLATELET ESTIMATE NORMAL (NORMAL)
--- NOTE | 2020-10-31 06:58 | NUR ---
Patient had uneventful night. Vent exchanged for technical reasons. Given Vecoronium x1 for over breathing vent. Remains sedated and on insulin gtt this AM.
--- NOTE | 2020-10-31 07:38 | NUR ---
Report given to JAROD Davenport
--- NOTE | 2020-10-31 09:00 | NUR ---
Last two accu checks were in the 90's. Discussed with hospitalist to see if Insulin drip could be discontinued. Will stop drip and re-initiate q4hr sliding scale insulin. Will continue to monitor.
--- NOTE | 2020-10-31 13:26 | NUR ---
On 10/25/2020, a family meeting was held and family wishes to proceed with agressive care. household worker collaborated with Dr Torres and ICU team and will follow for future family meetings and plans for LTACH as appropriate.
--- NOTE | 2020-10-31 19:26 | NUR ---
VACATION SEDATION NOT PERFORMED DUE TO BEING PRONE.
--- NOTE | 2020-10-31 20:00 | NUR ---
Assessment completed. Patient prone at this time. Opens eye to voice, but does not follow commands. Fentanyl, Versed, Precedex & Amiodarone gtts continue to IV pump. Will continue to monitor.
--- NOTE | 2020-10-31 22:00 | NUR ---
Talked with patient's DPOA/SO regarding current status.
[2020-11-01] VITALS (1400 sets, daily range): BP systolic 93–161; BP diastolic 52–83; PULSE 73–95; TEMP 98.4–102; O2SAT 82–100
[2020-11-01 04:49] LABS: ARTERIAL BLD GAS O2 SATURATION 96.5 % (92-100); ARTERIAL BLD GAS TCO2 CT 37.7; ARTERIAL BLOOD GAS BASE EXCESS 9.6 (-2-2); ARTERIAL BLOOD GAS PCO2 54.1 mmHg (35-45); ARTERIAL BLOOD GAS PO2 85.2 mmHg (80-100); ARTERIAL BLOOD GAS pH 7.44 (7.35-7.45)
--- NOTE | 2020-11-01 05:36 | NUR ---
Sedation vacation postponed at this time due to patient being in prone position.
--- NOTE | 2020-11-01 06:26 | NUR ---
Patient with uneventful night. Prone throughout shift. Vecuronium IVP as ordered due to patient stacking breaths intermittently. Arterial waveform more dampened as shift progressed. Continues to open eyesto voice & pain. Moderate amounts of oral secretions. Small soft stool mid-shift.
[2020-11-01 07:17] LABS: EOS # 0.2 (0.0-0.7); EOS % 2.8 % (0-4.0); GRAN # 4.3 (1.4-6.5); GRAN % 66.9 % (42.2-75.2); HEMATOCRIT 38.2 % (42.0-52.0); HEMOGLOBIN 11.6 g/dl (13.5-18.0); LYMPH # 1.4 (1.2-3.4); LYMPH % 21.9 % (20.0-51.0); MEAN CELL VOLUME 88 fl (80.0-100.0); MEAN CORPUSCULAR HEMOGLOBIN 27 pg (27.0-31.0); MEAN CORPUSCULAR HGB CONC 30 g/dl (33.0-37.0); MEAN PLATELET VOLUME 11.6 fl (7.4-10.4); MONO # 0.5 (0.1-0.6); PLATELET COUNT 231 K/mm3 (130-400); RED BLOOD COUNT 4.36 M/mm3 (4.20-5.60); REDCELL DISTRIBUTION WIDTH-CV 13.2 % (11.5-14.5)
[2020-11-01 07:22] LABS: CALCIUM 8.9 mg/dL (8.4-10.2); CREATININE, serum 1.12 (0.66-1.25); MAGNESIUM 2.1 mg/dL (1.6-2.3); POTASSIUM 4.6 mmol/L (3.4-5.0)
--- NOTE | 2020-11-01 10:00 | NUR ---
Dr. Torres and hospitalist notified of elevated temperature this morning. Will obtain blood, urine and sputum cultures.
--- NOTE | 2020-11-01 12:00 | NUR ---
Arterial line removed per Dr. Torres. Tolerated well.
[2020-11-01 12:48] LABS: COLLECTION METHOD CLEAN CATCH
[2020-11-01 13:15] LABS: AMORPHOUS CRYSTAL Present /uL; MUCOUS Present /lpf; PH 5 (5-8); SQUAMOUS EPITHELIAL None Seen /hpf; URINE APPEARANCE Turbid; URINE BACTERIA Occasional /hpf; URINE BILIRUBIN Negative (NEGATIVE); URINE BLOOD 3+ (NEGATIVE); URINE COLOR Yellow; URINE GLUCOSE Negative (NEGATIVE); URINE KETONE Negative (NEGATIVE); URINE LEUKOCYTE ESTERASE Negative (NEGATIVE); URINE NITRATE Negative (NEGATIVE); URINE PROTEIN(semi-quant) Negative (NEGATIVE); URINE UROBILINOGEN Negative (NEGATIVE)
--- NOTE | 2020-11-01 19:30 | NUR ---
RECIEVED REPORT FROM LIZ OLIVERA AND JAIME OLIVERA. PT RESTING QUITELY IN BED. ASSESSMENT COMPLETED.
--- NOTE | 2020-11-01 20:26 | NUR ---
SEDATION STOPPED THIS MORNING TO SEE HOW PATIENT RESPONDED; WAS AGITATED AND RESTLESS AND NEEDED TO BE RESEDATED TO AVOID INJURY TO HIMSELF HE IS STILL ON THE VENTILATOR.
--- NOTE | 2020-11-01 23:15 | NUR ---
UPDATE GIVEN TO HALEY. QUESTIONS ANSWERED. ALLOWED HALEY TO SPEAK TO JIM VIA SPEAKER PHONE.
[2020-11-02] VITALS (1270 sets, daily range): BP systolic 115–144; BP diastolic 62–89; PULSE 64–78; TEMP 97.6–99.2; O2SAT 69–100
[2020-11-02 05:06] LABS: ARTERIAL BLD GAS TCO2 CT 36.6; ARTERIAL BLOOD GAS HCO3 34.9 meq/L (22-26); ARTERIAL BLOOD GAS PCO2 54.4 mmHg (35-45); ARTERIAL BLOOD GAS PO2 59.6 mmHg (80-100); ARTERIAL BLOOD GAS pH 7.43 (7.35-7.45)
[2020-11-02 05:18] LABS: BASO % 0.3 % (0.0-2.0); EOS # 0.1 (0.0-0.7); EOS % 1.8 % (0-4.0); GRAN # 4.5 (1.4-6.5); GRAN % 71.3 % (42.2-75.2); HEMOGLOBIN 10.6 g/dl (13.5-18.0); LYMPH # 1.3 (1.2-3.4); LYMPH % 20.8 % (20.0-51.0); MEAN CELL VOLUME 87 fl (80.0-100.0); MEAN CORPUSCULAR HEMOGLOBIN 27 pg (27.0-31.0); MEAN CORPUSCULAR HGB CONC 31 g/dl (33.0-37.0); MONO # 0.3 (0.1-0.6); MONO % 4.8 % (1.7-9.3); PLATELET COUNT 197 K/mm3 (130-400); RED BLOOD COUNT 3.88 M/mm3 (4.20-5.60); REDCELL DISTRIBUTION WIDTH-CV 13.6 % (11.5-14.5)
[2020-11-02 05:20] LABS: HEMATOCRIT 33.9 % (42.0-52.0)
[2020-11-02 05:29] LABS: CALCIUM 8.7 mg/dL (8.4-10.2); CREATININE, serum 1.36 (0.66-1.25); POTASSIUM 4.4 mmol/L (3.4-5.0)
--- NOTE | 2020-11-02 07:00 | NUR ---
PT SPO2 DROPPED TO 79%. DEEP SUCTION PERFORMED. COPIOUS AMOUNTS OF RED TINGED SPUTUM SUCTIONED OUT. PT TURNED TO SUPINE TO ASSIST WITH OXYGENATION. SPO2 CONTINUES IN THE LOW 80'S. DR. GOEL NOTIFIED. RT AT THE BEDSIDE STARTING BREATHING TREATMENT. LUNG SOUNDS BILATERALLY ARE MORE COURSE WITH WHEEZES IN BILATERAL LOWER LOBES. 0800 - SPO2 92% AFTER TURNING HARD TO THE RIGHT. INCREASED VERSED BACK TO 10 MG/HR.
[2020-11-02 11:21] LABS: ALBUMIN 2.7 gm/dL (3.5-5.0); BILIRUBIN UNCONJUGATED 0.5 mg/dL (0.0-1.1); BILIRUBIN,DIRECT 0.2 mg/dL (0.0-0.4); BILIRUBIN,TOTAL 0.7 mg/dL (0.0-1.0); TOTAL PROTEIN 6.4 gm/dL (6.4-8.2)
--- NOTE | 2020-11-02 18:30 | NUR ---
SEDATION VACATION NOT PERFORMED DUE TO BEING PRONED
--- NOTE | 2020-11-02 20:00 | NUR ---
Assessment complete and charted. Patient face is red and warm to touch. Repositioned head. Nose/cheeks have abrasions present with scabs. Right pérez has dime sized open area with blood drainage present. Posterior trunk has scab to left side and blisters on back (appears to be where pads were present). Patient continues to be sedated at this time.
[2020-11-03] VITALS (854 sets, daily range): BP systolic 90–156; BP diastolic 55–89; PULSE 62–82; TEMP 98.6–101.3; O2SAT 81–100
[2020-11-03 04:28] LABS: ARTERIAL BLD GAS O2 SATURATION 97.7 % (92-100); ARTERIAL BLOOD GAS HCO3 34.4 meq/L (22-26); ARTERIAL BLOOD GAS PCO2 52.1 mmHg (35-45); ARTERIAL BLOOD GAS PO2 103.5 mmHg (80-100); ARTERIAL BLOOD GAS pH 7.44 (7.35-7.45)
[2020-11-03 05:22] LABS: BASO % 0.1 % (0.0-2.0); EOS # 0.2 (0.0-0.7); GRAN # 5.5 (1.4-6.5); GRAN % 75.2 % (42.2-75.2); HEMOGLOBIN 10.1 g/dl (13.5-18.0); LYMPH # 1.3 (1.2-3.4); LYMPH % 17.3 % (20.0-51.0); MEAN CELL VOLUME 87 fl (80.0-100.0); MEAN CORPUSCULAR HEMOGLOBIN 27 pg (27.0-31.0); MEAN CORPUSCULAR HGB CONC 31 g/dl (33.0-37.0); MEAN PLATELET VOLUME 11.3 fl (7.4-10.4); MONO # 0.3 (0.1-0.6); MONO % 4.5 % (1.7-9.3); PLATELET COUNT 182 K/mm3 (130-400); RED BLOOD COUNT 3.76 M/mm3 (4.20-5.60); REDCELL DISTRIBUTION WIDTH-CV 13.1 % (11.5-14.5)
[2020-11-03 05:24] LABS: HEMATOCRIT 32.7 % (42.0-52.0)
[2020-11-03 05:31] LABS: MAGNESIUM 1.9 mg/dL (1.6-2.3); PHOSPHOROUS 4.7 mg/dL (2.5-4.5)
[2020-11-03 05:38] LABS: PRE ALBUMIN 15.8 mg/dL (17.6-36.0)
[2020-11-03 05:50] LABS: ALBUMIN 2.8 gm/dL (3.5-5.0); BILIRUBIN,TOTAL 0.6 mg/dL (0.0-1.0); CALCIUM 8.1 mg/dL (8.4-10.2); CREATININE, serum 1.25 (0.66-1.25); POTASSIUM 4.3 mmol/L (3.4-5.0); TOTAL PROTEIN 6.4 gm/dL (6.4-8.2)
--- NOTE | 2020-11-03 06:59 | NUR ---
Patient had uneventful night. Sedation vacation not preformed due to proning.
--- NOTE | 2020-11-03 07:31 | NUR ---
Report given to JAROD Davenport
--- NOTE | 2020-11-03 08:30 | NUR ---
PT assisted to with un-proning. Tolerated well. Skin assessemt; multiple areas on chest and back of blisters which have opened up. Multiple areas of bruising noted to abdomen due to lovenox injections. Nose has scabs due to pressure from Proning. Dime sized open area noted to top of coccyx and keeping TAYO. Attempting to keep skin as clean and dry as possible to protect from breakdown. VS stable at time of assessment. Will continue to monitor.
--- NOTE | 2020-11-03 13:00 | NUR ---
Patient's eyes slightly opened. Asked patient to "open eyes wide". Eyes appeared to open up slightly more. Would not squeeze this nurse's hands or shake head yes or no on command. Mostly tolerating ventilator well. Cought occasionally against the vent. Staff attempts to re-orient and calm patient if coughing and becoming restless. VS stable at this time; will continue to monitor.
--- NOTE | 2020-11-03 19:24 | NUR ---
Sedation vacation not performed due to proning.
--- NOTE | 2020-11-03 21:18 | NUR ---
Assessment complete and charted. Resdiual 300 in OG holding tube feeds at this time. Patient prone.
[2020-11-04] VITALS (1261 sets, daily range): BP systolic 108–162; BP diastolic 67–89; PULSE 62–75; TEMP 97.8–99.9; O2SAT 84–100
--- NOTE | 2020-11-04 00:01 | NUR ---
Tube feeding resumed at this time. Residuals 50.
[2020-11-04 05:13] LABS: ARTERIAL BLD GAS O2 SATURATION 98.1 % (92-100); ARTERIAL BLOOD GAS BASE EXCESS 7.1 (-2-2); ARTERIAL BLOOD GAS HCO3 33.2 meq/L (22-26); ARTERIAL BLOOD GAS PCO2 55.8 mmHg (35-45); ARTERIAL BLOOD GAS pH 7.39 (7.35-7.45)
[2020-11-04 05:24] LABS: BASO % 0.1 % (0.0-2.0); EOS # 0.2 (0.0-0.7); GRAN # 5.9 (1.4-6.5); GRAN % 74.5 % (42.2-75.2); HEMOGLOBIN 10.2 g/dl (13.5-18.0); LYMPH # 1.4 (1.2-3.4); LYMPH % 17.9 % (20.0-51.0); MEAN CELL VOLUME 87 fl (80.0-100.0); MEAN CORPUSCULAR HEMOGLOBIN 27 pg (27.0-31.0); MEAN CORPUSCULAR HGB CONC 31 g/dl (33.0-37.0); MEAN PLATELET VOLUME 11.1 fl (7.4-10.4); MONO # 0.4 (0.1-0.6); MONO % 4.6 % (1.7-9.3); PLATELET COUNT 228 K/mm3 (130-400); RED BLOOD COUNT 3.74 M/mm3 (4.20-5.60); REDCELL DISTRIBUTION WIDTH-CV 13.2 % (11.5-14.5)
[2020-11-04 05:26] LABS: HEMATOCRIT 32.5 % (42.0-52.0)
--- NOTE | 2020-11-04 06:35 | NUR ---
Patient had uneventful night. Repositioned. Remains sedated on vent.
[2020-11-04 09:05] LABS: CREATININE, serum 1.2 (0.66-1.25); POTASSIUM 4.2 mmol/L (3.4-5.0)
--- NOTE | 2020-11-04 20:11 | NUR ---
SEDATION VACATION NOT INITIATED PATIENT HAS BEEN INCREASINGLY AGITATED AND RESTLESS TODAY. PRECEDEX HAS BEEN INCREASED TO 1.5 AND A VEC DRIP WAS ALSO INITIATED DURING THE TIMES HE IS PRONE.
--- NOTE | 2020-11-04 20:26 | NUR ---
PER DR. AMANDO DENISE
--- NOTE | 2020-11-04 20:30 | NUR ---
Assessment complete and charted. Patient remains sedated on vec drip. 03/31 on TOF.
[2020-11-05] VITALS (1182 sets, daily range): BP systolic 106–146; BP diastolic 63–84; PULSE 69–79; TEMP 98–102.5; O2SAT 85–100
[2020-11-05 01:28] LABS: COLLECTION METHOD CATHETER
[2020-11-05 01:38] LABS: AMORPHOUS CRYSTAL Present /uL; MUCOUS Present /lpf; PH 5 (5-8); SQUAMOUS EPITHELIAL 0-2 /hpf; URINE APPEARANCE Turbid; URINE BACTERIA None Seen /hpf; URINE BILIRUBIN Negative (NEGATIVE); URINE BLOOD 3+ (NEGATIVE); URINE COLOR Yellow; URINE GLUCOSE Negative (NEGATIVE); URINE KETONE Negative (NEGATIVE); URINE LEUKOCYTE ESTERASE Negative (NEGATIVE); URINE NITRATE Negative (NEGATIVE); URINE PROTEIN(semi-quant) 1+ (NEGATIVE); URINE RBC >50 /hpf; URINE UROBILINOGEN Negative (NEGATIVE); URINE WBC 20-50 /hpf
[2020-11-05 04:27] LABS: BASO % 0.3 % (0.0-2.0); EOS # 0.1 (0.0-0.7); EOS % 1.7 % (0-4.0); GRAN # 4.9 (1.4-6.5); GRAN % 73.6 % (42.2-75.2); LYMPH # 1.2 (1.2-3.4); MEAN CELL VOLUME 87 fl (80.0-100.0); MEAN CORPUSCULAR HGB CONC 31 g/dl (33.0-37.0); MEAN PLATELET VOLUME 10.6 fl (7.4-10.4); MONO # 0.4 (0.1-0.6); MONO % 5.5 % (1.7-9.3); PLATELET COUNT 220 K/mm3 (130-400); RED BLOOD COUNT 3.57 M/mm3 (4.20-5.60); REDCELL DISTRIBUTION WIDTH-CV 13.2 % (11.5-14.5)
[2020-11-05 04:28] LABS: HEMOGLOBIN 9.5 g/dl (13.5-18.0); MEAN CORPUSCULAR HEMOGLOBIN 27 pg (27.0-31.0)
[2020-11-05 04:46] LABS: CREATININE, serum 1.25 (0.66-1.25); MAGNESIUM 2.1 mg/dL (1.6-2.3); POTASSIUM 4.7 mmol/L (3.4-5.0)
[2020-11-05 05:16] LABS: ARTERIAL BLD GAS O2 SATURATION 97.6 % (92-100); ARTERIAL BLD GAS TCO2 CT 35.7; ARTERIAL BLOOD GAS BASE EXCESS 6.1 (-2-2); ARTERIAL BLOOD GAS HCO3 33.7 meq/L (22-26); ARTERIAL BLOOD GAS PO2 110.7 mmHg (80-100); ARTERIAL BLOOD GAS pH 7.33 (7.35-7.45)
[2020-11-05 05:17] LABS: ARTERIAL BLOOD GAS PCO2 65.7 mmHg (35-45)
--- NOTE | 2020-11-05 06:43 | NUR ---
Patient had uneventful night. Remains on sedation and vecuronium.
--- NOTE | 2020-11-05 07:08 | NUR ---
Report given to JAROD Mast
[2020-11-05 08:35] LABS: ARTERIAL BLD GAS O2 SATURATION 97.3 % (92-100); ARTERIAL BLD GAS TCO2 CT 31.6; ARTERIAL BLOOD GAS PCO2 52.4 mmHg (35-45); ARTERIAL BLOOD GAS pH 7.38 (7.35-7.45)
--- NOTE | 2020-11-05 20:42 | NUR ---
Assessment complete and charted. Patient prone. Moving head with suction. Increased vecuronium at this time. Remains sedated on vent
[2020-11-06] VITALS (929 sets, daily range): BP systolic 109–140; BP diastolic 74–86; PULSE 62–107; TEMP 98–100.4; O2SAT 97–100
[2020-11-06 04:21] LABS: ARTERIAL BLD GAS TCO2 CT 33.4; ARTERIAL BLOOD GAS BASE EXCESS 6.5 (-2-2); ARTERIAL BLOOD GAS HCO3 31.8 meq/L (22-26); ARTERIAL BLOOD GAS PO2 62.5 mmHg (80-100); ARTERIAL BLOOD GAS pH 7.42 (7.35-7.45)
[2020-11-06 05:16] LABS: BASO % 0.3 % (0.0-2.0); EOS # 0.1 (0.0-0.7); EOS % 2.3 % (0-4.0); GRAN % 65.4 % (42.2-75.2); LYMPH # 1.6 (1.2-3.4); LYMPH % 25.5 % (20.0-51.0); MEAN CELL VOLUME 87 fl (80.0-100.0); MEAN CORPUSCULAR HGB CONC 31 g/dl (33.0-37.0); MEAN PLATELET VOLUME 10.9 fl (7.4-10.4); MONO # 0.4 (0.1-0.6); MONO % 5.8 % (1.7-9.3); PLATELET COUNT 225 K/mm3 (130-400); RED BLOOD COUNT 3.41 M/mm3 (4.20-5.60); REDCELL DISTRIBUTION WIDTH-CV 13.4 % (11.5-14.5)
[2020-11-06 05:24] LABS: HEMOGLOBIN 9.2 g/dl (13.5-18.0); MEAN CORPUSCULAR HEMOGLOBIN 27 pg (27.0-31.0)
[2020-11-06 05:25] LABS: HEMATOCRIT 29.5 % (42.0-52.0)
[2020-11-06 05:26] LABS: CREATININE, serum 1.32 (0.66-1.25); POTASSIUM 4.4 mmol/L (3.4-5.0)
--- NOTE | 2020-11-06 05:53 | NUR ---
Patient had uneventful night. Remains sedated and proned.
--- NOTE | 2020-11-06 07:00 | NUR ---
Report given to JAROD Mast
--- NOTE | 2020-11-06 10:40 | NUR ---
SPOKE TO DR GOEL ABOUT PT'S HIGH RESIDUAL AND TF ON HOLD. PROVIDER STATES DECREASE LEVEMIR DOSE THIS AM, SEE MAR. AND RESTART TF AT 10ML/HR AND THEN INCREASE EVERY 4HR BY 10ML IF TOLERATING OK.
--- NOTE | 2020-11-06 15:45 | NUR ---
Pt tolerated proning well
[2020-11-06 16:16] LABS: COLLECTION METHOD CATHETER
[2020-11-06 16:37] LABS: BUDDING YEAST Present /hpf; PH 5 (5-8); SQUAMOUS EPITHELIAL 0-2 /hpf; URINE APPEARANCE Cloudy; URINE BACTERIA Rare /hpf; URINE BILIRUBIN Negative (NEGATIVE); URINE BLOOD 2+ (NEGATIVE); URINE COLOR Yellow; URINE GLUCOSE Negative (NEGATIVE); URINE KETONE Negative (NEGATIVE); URINE LEUKOCYTE ESTERASE Negative (NEGATIVE); URINE NITRATE Negative (NEGATIVE); URINE PROTEIN(semi-quant) Negative (NEGATIVE); URINE RBC 20-50 /hpf; URINE UROBILINOGEN Negative (NEGATIVE)
--- NOTE | 2020-11-06 20:00 | NUR ---
Report received from JAROD Mast. Patient remains on ventilator in prone position. Will continue to monitor. See assessment.
[2020-11-07] VITALS (687 sets, daily range): BP systolic 97–147; BP diastolic 62–90; PULSE 66–84; TEMP 98.8–101.5; O2SAT 85–100
[2020-11-07 05:24] LABS: BASO % 0.3 % (0.0-2.0); EOS # 0.1 (0.0-0.7); EOS % 2.2 % (0-4.0); GRAN # 4.1 (1.4-6.5); GRAN % 68.8 % (42.2-75.2); HEMATOCRIT 28.9 % (42.0-52.0); HEMOGLOBIN 9.1 g/dl (13.5-18.0); LYMPH # 1.3 (1.2-3.4); LYMPH % 21.4 % (20.0-51.0); MEAN CELL VOLUME 86 fl (80.0-100.0); MEAN CORPUSCULAR HEMOGLOBIN 27 pg (27.0-31.0); MEAN CORPUSCULAR HGB CONC 32 g/dl (33.0-37.0); MEAN PLATELET VOLUME 10.3 fl (7.4-10.4); MONO # 0.4 (0.1-0.6); MONO % 6.6 % (1.7-9.3); PLATELET COUNT 234 K/mm3 (130-400); RED BLOOD COUNT 3.36 M/mm3 (4.20-5.60); REDCELL DISTRIBUTION WIDTH-CV 13.5 % (11.5-14.5)
[2020-11-07 05:34] LABS: CALCIUM 7.6 mg/dL (8.4-10.2); CREATININE, serum 1.11 (0.66-1.25); MAGNESIUM 1.9 mg/dL (1.6-2.3); POTASSIUM 4.2 mmol/L (3.4-5.0)
--- NOTE | 2020-11-07 05:50 | NUR ---
SEDATION VACATION HELD AT THIS TIME DUE TO PATIENT BEING IN PRONE POSITION.
[2020-11-07 06:45] LABS: ARTERIAL BLD GAS TCO2 CT 29.1; ARTERIAL BLOOD GAS BASE EXCESS 3.5 (-2-2); ARTERIAL BLOOD GAS HCO3 27.9 meq/L (22-26); ARTERIAL BLOOD GAS PCO2 41.4 mmHg (35-45); ARTERIAL BLOOD GAS pH 7.45 (7.35-7.45)
[2020-11-07 06:54] LABS: ARTERIAL BLOOD GAS PO2 220.2 mmHg (80-100)
--- NOTE | 2020-11-07 11:00 | NUR ---
VEC STOPPED WHEN UNPRONED PER
--- NOTE | 2020-11-07 14:45 | NUR ---
VEC STARTED PRIOR TO PRONING PER
--- NOTE | 2020-11-07 15:26 | NUR ---
ornamental ironworker helper gave a referral to [facility] as patient may receive a trach and peg tube early next week.
--- NOTE | 2020-11-07 16:55 | NUR ---
SPOKE WITH REGARDING PT UPDATES. INFORMED HIM OF TEMP TODAY OF 101.5. ALSO, ABX TO BE COMPLETED TOMORROW. WILL CONTINUE TO MONTIOR.
--- NOTE | 2020-11-07 17:00 | NUR ---
No sedation vacation at this time d/t pt being proned.
--- NOTE | 2020-11-07 19:30 | NUR ---
Received report from JAROD Lafleur.
--- NOTE | 2020-11-07 20:00 | NUR ---
Patient repositioned at shift change. Tolerates ventilator and position changes well. Vitals within normal limits. Receiving vec, versed, precedex, and fentanyl drips. Rates confirmed at bedside with JAROD Lafleur. Multiple skin issues noted. Bleeding abrasion noted to patient's nose and mouth. Scattered bruising to the abdomen and trunk. Redness noted in abdominal and groin folds. Several blisters, some open, others scabbed, others fluid filled and intact, noted to the back, trunk, anterior shoulder areas, and legs. Nursing staff aware.
--- NOTE | 2020-11-07 22:00 | NUR ---
PT HAS ACTIVE BLEEDING IN MOUTH AND AROUND ETTUBE. PT IS PRONED AND IS BEING PLACED ON A NEW PILLOW CASE WITH EACH HEAD TURN.
--- NOTE | 2020-11-07 22:24 | NUR ---
Updated patient's spouse, Mary Jane.
--- NOTE | 2020-11-07 23:30 | NUR ---
Patient's darnell catheter drainage tube noted to be full of thick orange sand/sediment. Patient's bed linens soaked with urine. Darnell catheter exchanged with new 18Fr. Immediately following exchange, 1150mL of urine output noted in collection bag. Catheter tip was somewhat difficult to remove and some blood-tinged urine was noted following insertion of new catheter. Catheter tip was intact but thouroughly coated with sediment.
[2020-11-08] VITALS (676 sets, daily range): BP systolic 109–158; BP diastolic 63–88; PULSE 61–76; TEMP 97.9–100; O2SAT 88–100
[2020-11-08 05:15] LABS: ARTERIAL BLD GAS TCO2 CT 30.4; ARTERIAL BLOOD GAS BASE EXCESS 3.7 (-2-2); ARTERIAL BLOOD GAS PCO2 46.2 mmHg (35-45); ARTERIAL BLOOD GAS pH 7.42 (7.35-7.45)
[2020-11-08 05:17] LABS: ARTERIAL BLOOD GAS PO2 147.8 mmHg (80-100)
[2020-11-08 05:18] LABS: BASO % 0.2 % (0.0-2.0); EOS # 0.2 (0.0-0.7); EOS % 2.8 % (0-4.0); GRAN # 4.4 (1.4-6.5); LYMPH # 1.1 (1.2-3.4); LYMPH % 18.1 % (20.0-51.0); MEAN CELL VOLUME 86 fl (80.0-100.0); MEAN CORPUSCULAR HGB CONC 31 g/dl (33.0-37.0); MEAN PLATELET VOLUME 10.6 fl (7.4-10.4); MONO # 0.4 (0.1-0.6); MONO % 7.1 % (1.7-9.3); PLATELET COUNT 225 K/mm3 (130-400); RED BLOOD COUNT 3.25 M/mm3 (4.20-5.60); REDCELL DISTRIBUTION WIDTH-CV 13.7 % (11.5-14.5)
[2020-11-08 05:21] LABS: HEMATOCRIT 27.8 % (42.0-52.0); HEMOGLOBIN 8.7 g/dl (13.5-18.0); MEAN CORPUSCULAR HEMOGLOBIN 27 pg (27.0-31.0)
--- NOTE | 2020-11-08 05:26 | NUR ---
PATIENT PRONED. NO SEDATION VACATION AT THIS TIME.
[2020-11-08 05:31] LABS: CALCIUM 7.7 mg/dL (8.4-10.2); CREATININE, serum 1.13 (0.66-1.25); MAGNESIUM 1.9 mg/dL (1.6-2.3); POTASSIUM 4.3 mmol/L (3.4-5.0)
--- NOTE | 2020-11-08 07:00 | NUR ---
PT IS INTUBATED, SEDATED, PARALYZED, AND PRONED. VSS. WILL CONTINUE TO MONITOR.
--- NOTE | 2020-11-08 17:00 | NUR ---
NO SEDATION VACATION D/T PT BEING PRONED. PRIOR TO BEING PRONED PT MOVES ARM AND MOVES FACE. WILL CONTINUE TO MONTIOR.
--- NOTE | 2020-11-08 19:15 | NUR ---
Received report from JAROD Lafleur. Patient in prone position, tolerating well. All vitals within normal limits. Receiving vec, versed, fentanyl, and precedex drips; rates confirmed at bedside.
--- NOTE | 2020-11-08 22:04 | NUR ---
Updated patient's spouse, Mary Jane. Questions encouraged and answered.
[2020-11-09] VITALS (651 sets, daily range): BP systolic 124–165; BP diastolic 77–87; PULSE 60–72; TEMP 98.7–99.3; O2SAT 86–100
--- NOTE | 2020-11-09 05:00 | NUR ---
Patient in prone position. No sedation vacation performed.
[2020-11-09 05:52] LABS: ARTERIAL BLD GAS O2 SATURATION 98.2 % (92-100); ARTERIAL BLD GAS TCO2 CT 28.1; ARTERIAL BLOOD GAS BASE EXCESS 1.7 (-2-2); ARTERIAL BLOOD GAS HCO3 26.8 meq/L (22-26); ARTERIAL BLOOD GAS PCO2 44.2 mmHg (35-45)
[2020-11-09 05:53] LABS: ARTERIAL BLOOD GAS PO2 123.9 mmHg (80-100)
[2020-11-09 05:56] LABS: BASO % 0.2 % (0.0-2.0); EOS # 0.1 (0.0-0.7); GRAN # 3.1 (1.4-6.5); GRAN % 67.9 % (42.2-75.2); LYMPH # 1.1 (1.2-3.4); LYMPH % 23.9 % (20.0-51.0); MEAN CELL VOLUME 84 fl (80.0-100.0); MEAN CORPUSCULAR HGB CONC 32 g/dl (33.0-37.0); MEAN PLATELET VOLUME 11.1 fl (7.4-10.4); MONO # 0.3 (0.1-0.6); MONO % 5.8 % (1.7-9.3); PLATELET COUNT 198 K/mm3 (130-400); RED BLOOD COUNT 3.06 M/mm3 (4.20-5.60); REDCELL DISTRIBUTION WIDTH-CV 13.7 % (11.5-14.5)
[2020-11-09 06:00] LABS: HEMATOCRIT 25.8 % (42.0-52.0); HEMOGLOBIN 8.3 g/dl (13.5-18.0); MEAN CORPUSCULAR HEMOGLOBIN 27 pg (27.0-31.0)
[2020-11-09 06:06] LABS: CALCIUM 7.8 mg/dL (8.4-10.2); CREATININE, serum 0.84 (0.66-1.25); MAGNESIUM 1.9 mg/dL (1.6-2.3)
--- NOTE | 2020-11-09 17:42 | NUR ---
Adequate staff unavailable to safely prone pt. Therefore sedation vacation performed. Pt able to wake, open eyes, shake head yes/now to questions, hand grasp weak. Sedation resumed.
--- NOTE | 2020-11-09 19:15 | NUR ---
Received report from JAROD Mast. Patient resting quietly in supine position. Tolerating ventilator well. All vitals within normal limits. Vec drip on standby at this time; continues to receive Precedex, Fentanyl, and Versed drips.
[2020-11-10] VITALS (642 sets, daily range): BP systolic 118–174; BP diastolic 73–88; PULSE 64–82; TEMP 98.7–100.3; O2SAT 85–100
--- NOTE | 2020-11-10 04:00 | NUR ---
Patient's face shaved and thouroughly cleaned. Driscoll exchanged by Aylin Lakhani and Yakov with assistance of this RN. ET remains 24 at the lip, OG 63 at the lip. Patient tolerated well.
[2020-11-10 05:36] LABS: BASO % 0.2 % (0.0-2.0); EOS # 0.1 (0.0-0.7); EOS % 2.3 % (0-4.0); GRAN # 3.2 (1.4-6.5); GRAN % 62.9 % (42.2-75.2); LYMPH # 1.5 (1.2-3.4); LYMPH % 28.6 % (20.0-51.0); MEAN CELL VOLUME 86 fl (80.0-100.0); MEAN CORPUSCULAR HGB CONC 31 g/dl (33.0-37.0); MEAN PLATELET VOLUME 11.1 fl (7.4-10.4); MONO # 0.3 (0.1-0.6); MONO % 5.6 % (1.7-9.3); PLATELET COUNT 185 K/mm3 (130-400); RED BLOOD COUNT 3.06 M/mm3 (4.20-5.60); REDCELL DISTRIBUTION WIDTH-CV 13.8 % (11.5-14.5)
[2020-11-10 05:42] LABS: HEMATOCRIT 26.3 % (42.0-52.0); HEMOGLOBIN 8.2 g/dl (13.5-18.0); MEAN CORPUSCULAR HEMOGLOBIN 27 pg (27.0-31.0)
[2020-11-10 05:50] LABS: ALBUMIN 2.5 gm/dL (3.5-5.0); BILIRUBIN,TOTAL 0.4 mg/dL (0.0-1.0); C-REACTIVE PROTEIN 0.8 mg/dL (0.0-0.9); CALCIUM 7.7 mg/dL (8.4-10.2); CREATININE, serum 0.9 (0.66-1.25); MAGNESIUM 1.7 mg/dL (1.6-2.3); PHOSPHOROUS 2.7 mg/dL (2.5-4.5); POTASSIUM 3.8 mmol/L (3.4-5.0); TOTAL PROTEIN 5.6 gm/dL (6.4-8.2)
[2020-11-10 05:55] LABS: PRE ALBUMIN 19.1 mg/dL (17.6-36.0)
[2020-11-10 06:25] LABS: ARTERIAL BLD GAS O2 SATURATION 93.8 % (92-100); ARTERIAL BLD GAS TCO2 CT 27.2; ARTERIAL BLOOD GAS PCO2 38.2 mmHg (35-45); ARTERIAL BLOOD GAS PO2 64.8 mmHg (80-100); ARTERIAL BLOOD GAS pH 7.45 (7.35-7.45)
--- NOTE | 2020-11-10 08:45 | NUR ---
Right upper arm PICC intact. Right upper arm PICC dressing change done with sterile technique with insertion site cleansed with ChloraPrep x1, chlorhexidine impregnated disc applied, skin prep, StatLock, and Tegaderm applied. Patient has numerous open areas with serous yellow drainage noted. Insertion site is dry and intact. No other signs or symptoms of IV complications noted.
--- NOTE | 2020-11-10 09:38 | NUR ---
breaker table worker left Mary Jane a message to director call center sales.
--- NOTE | 2020-11-10 16:51 | NUR ---
wet room worker provided updates to [facility]. Worker attempted to contact life partner for the second time, however, was unable to leave a message.
--- NOTE | 2020-11-10 19:48 | NUR ---
Assessment complete and charted. Proned on vent at this time.
--- NOTE | 2020-11-10 21:35 | NUR ---
Patient called for update. Update provided. No other questions
[2020-11-11] VITALS (684 sets, daily range): BP systolic 106–186; BP diastolic 63–93; PULSE 60–73; TEMP 97.9–99.5; O2SAT 92–100
--- NOTE | 2020-11-11 00:01 | NUR ---
Repositioned. Continues prone. Residual not checked with this assessment as flush was just delivered as staff arrived in room.
[2020-11-11 05:14] LABS: ARTERIAL BLD GAS O2 SATURATION 96.9 % (92-100); ARTERIAL BLD GAS TCO2 CT 27.8; ARTERIAL BLOOD GAS BASE EXCESS 1.6 (-2-2); ARTERIAL BLOOD GAS HCO3 26.5 meq/L (22-26); ARTERIAL BLOOD GAS PCO2 42.6 mmHg (35-45); ARTERIAL BLOOD GAS PO2 92.3 mmHg (80-100); ARTERIAL BLOOD GAS pH 7.41 (7.35-7.45)
[2020-11-11 05:41] LABS: BASO % 0.2 % (0.0-2.0); EOS # 0.2 (0.0-0.7); EOS % 2.7 % (0-4.0); GRAN # 3.8 (1.4-6.5); GRAN % 63.9 % (42.2-75.2); LYMPH # 1.6 (1.2-3.4); LYMPH % 26.8 % (20.0-51.0); MEAN CELL VOLUME 86 fl (80.0-100.0); MEAN CORPUSCULAR HGB CONC 31 g/dl (33.0-37.0); MEAN PLATELET VOLUME 10.4 fl (7.4-10.4); MONO # 0.3 (0.1-0.6); MONO % 5.7 % (1.7-9.3); PLATELET COUNT 206 K/mm3 (130-400); RED BLOOD COUNT 3.21 M/mm3 (4.20-5.60); REDCELL DISTRIBUTION WIDTH-CV 14.3 % (11.5-14.5)
[2020-11-11 05:53] LABS: HEMATOCRIT 27.6 % (42.0-52.0); HEMOGLOBIN 8.6 g/dl (13.5-18.0); MEAN CORPUSCULAR HEMOGLOBIN 27 pg (27.0-31.0)
[2020-11-11 05:54] LABS: ALBUMIN 2.7 gm/dL (3.5-5.0); BILIRUBIN,TOTAL 0.4 mg/dL (0.0-1.0); C-REACTIVE PROTEIN 0.9 mg/dL (0.0-0.9); CALCIUM 7.8 mg/dL (8.4-10.2); CREATININE, serum 0.76 (0.66-1.25); POTASSIUM 3.9 mmol/L (3.4-5.0); TOTAL PROTEIN 5.8 gm/dL (6.4-8.2)
--- NOTE | 2020-11-11 06:02 | NUR ---
Patient remained prone throughout night on sedation and vecuronium. Overall uneventful night.
--- NOTE | 2020-11-11 06:59 | NUR ---
Report given to JAROD Mast
--- NOTE | 2020-11-11 20:00 | NUR ---
Patient proned. Continues on ventilator. No outward s/sx of pain or discomfort noted at this time. Continues on vecuronium, versed, fentanyl, and precedex drips. OG tube with feedings per orders. Will put on hold after midnight for trach/peg tomorrow. Indwelling darnell catheter with thick, cloudy yellow urine with sand/sediment present.
[2020-11-12] VITALS (646 sets, daily range): BP systolic 71–177; BP diastolic 34–84; PULSE 58–71; TEMP 97.8–98.3; O2SAT 87–98
[2020-11-12 05:04] LABS: ARTERIAL BLD GAS TCO2 CT 27.9; ARTERIAL BLOOD GAS BASE EXCESS 2.3 (-2-2); ARTERIAL BLOOD GAS HCO3 26.6 meq/L (22-26); ARTERIAL BLOOD GAS PCO2 40.4 mmHg (35-45); ARTERIAL BLOOD GAS pH 7.44 (7.35-7.45)
--- NOTE | 2020-11-12 06:12 | NUR ---
Patient continues on Vecuronium, Versed, Fentanyl and Precedex drips. Feedings stopped at midnight for trach/peg placement today.
--- NOTE | 2020-11-12 13:53 | NUR ---
PT AT SURGERY, NOT AVAILABLE FOR ASSESSMENT
--- NOTE | 2020-11-12 17:22 | NUR ---
1348 PATIENT TO OR 1526 PATIENT TO ICU ROOM 5; CASE DISCUSSED WITH OR NURSE AND METAL SPRAYER PRODUCTION; PEG TUBE AND TRACH ASSESSED AND BOTH SITES ARE WITHOUT DRAINAGE AND THERE ARE NO SIGNS OF COMPLICATIONS; PATIENT IS PLACED ON ICU MONITORING AND ASSESSMENT WAS COMPLETED
--- NOTE | 2020-11-12 17:24 | NUR ---
PATIENT SEDATION RESUMED AT PRIOR SET RATES; WILL TITRATE APPROPRIATELY ACCORDING TO ORDERS
--- NOTE | 2020-11-12 18:41 | NUR ---
PATIENT MAXED OUT ON FENT, PRECEDEX, AND VERSED AND PATIENT WAS STILL AWAKE AND FIGHTING VENTILATOR; TRACH AND PEG PLACED TODAY
--- NOTE | 2020-11-12 19:48 | NUR ---
REPORTED OFF TO JAROD HAMMER
--- NOTE | 2020-11-12 21:26 | NUR ---
@ 1999 noted blood pressure to be low and patient bradycardiac. VS 71/34-58-26-97% on vent. All sedation lowered as per protocal. Precedex 1.4; Fentanyl 175; Versed 8. @ 2099 minimal change in patients blood pressure. Currently remains at 74/40. Call recieved from [facility] regarding blood pressure. Explained current settings on sedation. Will have Janel GALLOWAY call this nurse back. Precedex at 1.3 now @ 2109 - Call recieved from MD at [facility]. Orders to decrease Fentanyl to 125mcg; Versed 7; and precedex 1.2. Blood pressure 74/33. stated JAROD Cavazos will work with this nurse regarding blood pressure and sedation settings. @ 2124 JAROD Cavazos called; she stated to turn precedex to 1.0 and continue to monitor blood pressure. Patient remains alert and awakes easily. When asked he shakes his head "yes" for pain. No agitation noted at this time. Blood Pressure 74/36. Suggested by this nursing staff to try Levophed or fluid bolus. She insisted that we keep reducing the sedation instead of trying other methods. Will montior patient for any increased agitation or anxiety. @
--- NOTE | 2020-11-12 21:32 | NUR ---
Blood Pressure at this time 90/48-59-25-97% on vent. Patient resting. Opens eyes easily when spoken to at this time.
[2020-11-12 21:58] LABS: BASO % 0.2 % (0.0-2.0); EOS # 0.2 (0.0-0.7); EOS % 2.5 % (0-4.0); GRAN # 4.6 (1.4-6.5); GRAN % 70.6 % (42.2-75.2); LYMPH # 1.3 (1.2-3.4); LYMPH % 19.8 % (20.0-51.0); MEAN CELL VOLUME 87 fl (80.0-100.0); MEAN CORPUSCULAR HGB CONC 32 g/dl (33.0-37.0); MEAN PLATELET VOLUME 9.9 fl (7.4-10.4); MONO # 0.4 (0.1-0.6); MONO % 6.3 % (1.7-9.3); PLATELET COUNT 166 K/mm3 (130-400); RED BLOOD COUNT 3.03 M/mm3 (4.20-5.60); REDCELL DISTRIBUTION WIDTH-CV 14.8 % (11.5-14.5)
[2020-11-12 22:05] LABS: HEMATOCRIT 26.2 % (42.0-52.0); HEMOGLOBIN 8.3 g/dl (13.5-18.0); MEAN CORPUSCULAR HEMOGLOBIN 27 pg (27.0-31.0)
[2020-11-12 22:11] LABS: CALCIUM 7.8 mg/dL (8.4-10.2); CREATININE, serum 0.97 (0.66-1.25); POTASSIUM 4.4 mmol/L (3.4-5.0)
--- NOTE | 2020-11-12 22:26 | NUR ---
@ 2144 - Blood pressure 78/46 - precedex turned down to 0.9. Spoke with Janel; updated that I had decreased the precedex again @ 2200 - Blood pressure 78/39 - versed decreased to 6. Patient is alert and reponsive. Not fighting or anxious at this time. Patient denies any needs. Oral care given x 2 with encouragement. Patient tolerated when explained that he would feel better with oral care. Eyes crusted over. Both cleansed with warm water. Patient shakes head when asked if he feels better.
[2020-11-13] VITALS (105 sets, daily range): BP systolic 110–133; BP diastolic 60–74; PULSE 70–88; TEMP 98.2–100.7; O2SAT 93–97
--- NOTE | 2020-11-13 00:03 | NUR ---
Bedbath done. Patient tolerated well. Skin in poor shape. Noted abrasions to right shoulder; right breast/breast fold and left lower leg. Noted a slight amount of reddness under abdominal fold. No open areas noted. Patient has multiple bruises across abdomen. A large bruise to left side of abdomen. Amezquita care done. Cath bag leaking and changed at this time. Coccyx area slightly reddened. No open areas noted. Heels elevated. Heels dry and scaly. No reddness or open areas noted. Mouth with few open sores. Patient allowed this nurse to do oral care. Trach and PEG dressing changed at this time.
--- NOTE | 2020-11-13 03:02 | NUR ---
Call placed to RT for suctioning. Patient sounds coarse/wet. Trach suction/oral mucosa suctioned by this nurse with very little change or results. RT did deep suctioning with results.
--- NOTE | 2020-11-13 04:28 | NUR ---
Patient resting in bed. Awake and alert. Patient follows this nurse with his eyes and is able to respond by shaking his head. Denies any pain/discomfort at this time. Oral care given by this nurse. Patient tolerates very well. Dressiong changed to trach site. Moderate amount of bright red blood noted on old dressing. Vent settings unchanged this AM.
[2020-11-13 05:25] LABS: ARTERIAL BLD GAS O2 SATURATION 96.1 % (92-100); ARTERIAL BLD GAS TCO2 CT 28.8; ARTERIAL BLOOD GAS BASE EXCESS 4.3 (-2-2); ARTERIAL BLOOD GAS HCO3 27.7 meq/L (22-26); ARTERIAL BLOOD GAS PCO2 36.7 mmHg (35-45)
[2020-11-13 05:40] LABS: ALBUMIN 2.9 gm/dL (3.5-5.0); BILIRUBIN,TOTAL 0.5 mg/dL (0.0-1.0); C-REACTIVE PROTEIN 1.5 mg/dL (0.0-0.9); CREATININE, serum 0.92 (0.66-1.25); POTASSIUM 3.9 mmol/L (3.4-5.0); TOTAL PROTEIN 6.1 gm/dL (6.4-8.2)
--- NOTE | 2020-11-13 06:17 | NUR ---
Updated patients significant other this AM. Able to allow her to talk with patient via speaker phone. Patient able to nod and mouth words in understanding
--- NOTE | 2020-11-13 14:25 | NUR ---
vegetable i farmworker faxed updates to Jarrod at [facility].
--- NOTE | 2020-11-13 15:50 | NUR ---
Pt transfered self slowly but independently from ICU bed to medical bed, pt then transfered to medical 309 - recieved by JAROD Gonzalez. All belongings with pt
--- NOTE | 2020-11-13 19:15 | NUR ---
Received report from JAROD Mast.
--- NOTE | 2020-11-13 19:52 | NUR ---
Patient resting quietly in bed. He is alert and following verbal commands. Axillary temperature of 100.7 F, all other vitals within normal limits. He continues to receive fentanyl, versed, and precedex drips while on ventilator. Tolerating well. Patient repositioned, bed in lowest position, and all alarms are on. Accucheck at this time yeilded result of Ramon. Sunni hospitalist, notified. Received orders to hold tonight's scheduled dose of levemir.
--- NOTE | 2020-11-13 20:02 | NUR ---
Skin concerns not listed in assessment include a 3cm fluid-filled blister to the patient's left cheek; an unstagable ulcer to the patient's right cheek that is currently scabbed over; a scab/abrasion to chin; an open/healing blister to the right interior thigh; and mulitple open/healing blisters to the abdomen and back. Excessive bruising scattered about the patient's abdomen.
[2020-11-14] VITALS (9 sets, daily range): BP systolic 109–147; BP diastolic 61–85; PULSE 63–91; TEMP 97.6–100.2
[2020-11-14 04:15] LABS: ARTERIAL BLOOD GAS HCO3 27.8 meq/L (22-26); ARTERIAL BLOOD GAS PCO2 35.6 mmHg (35-45); ARTERIAL BLOOD GAS PO2 60.5 mmHg (80-100); ARTERIAL BLOOD GAS pH 7.51 (7.35-7.45)
[2020-11-14 04:16] LABS: ARTERIAL BLD GAS O2 SATURATION 90.7 % (92-100)
[2020-11-14 05:16] LABS: BASO % 0.2 % (0.0-2.0); EOS # 0.2 (0.0-0.7); EOS % 2.9 % (0-4.0); GRAN # 3.6 (1.4-6.5); GRAN % 65.3 % (42.2-75.2); HEMATOCRIT 22.9 % (42.0-52.0); HEMOGLOBIN 7.5 g/dl (13.5-18.0); LYMPH # 1.2 (1.2-3.4); LYMPH % 21.9 % (20.0-51.0); MEAN CELL VOLUME 83 fl (80.0-100.0); MEAN CORPUSCULAR HEMOGLOBIN 27 pg (27.0-31.0); MEAN CORPUSCULAR HGB CONC 33 g/dl (33.0-37.0); MEAN PLATELET VOLUME 9.6 fl (7.4-10.4); MONO # 0.5 (0.1-0.6); MONO % 9.2 % (1.7-9.3); PLATELET COUNT 140 K/mm3 (130-400); RED BLOOD COUNT 2.76 M/mm3 (4.20-5.60); REDCELL DISTRIBUTION WIDTH-CV 15.3 % (11.5-14.5)
[2020-11-14 05:27] LABS: CALCIUM 7.7 mg/dL (8.4-10.2); CREATININE, serum 0.93 (0.66-1.25); POTASSIUM 3.4 mmol/L (3.4-5.0)
--- NOTE | 2020-11-14 08:30 | NUR ---
Patient awake and resting in bed. Able to follow simple commands and give yes and no answers appropriately. VS stable; will continue to monitor.
--- NOTE | 2020-11-14 16:54 | NUR ---
Life partner at bedside; all questions and concerns addressed at this time.
--- NOTE | 2020-11-14 22:05 | NUR ---
Patient resting at this time. He awakens easily when spoken to and responds with a head nod. Patient is alert and able to understand questions. Unable to asses for orientation as he is unable to talk. Patient denies any pain/discomfort at this time. Noted to be understanding what is going on around him. RT in the room to provide suctioning; trach care and oral care at this time. Patient tolerates very well. Skin is w/d. Color pale pink. Lungs coarse throughout all low and diminshed in the bases. Resp even/unlabored and controled by the ventilator. Abd obese; soft; non-tender with noted bowel sounds. Peg tube with feeding infusing as per orders at 45ml/hr. Amezquita cath patent; clear yellow urine noted in bag. Patient has rectal tube due to loose stools. Noted slight leakage around tube; patient cleaned up; no noted open areas on buttock; coccyx or groing. PPP. patient has 2-3 + pitting edema noted. Patient face with scabbed area on nasal septum; fluid filled blister to the left side of his face; oral mucosa dry; with lips peeling and few sores in mouth. Patient has scabbed over areas to right shoulder and outer aspect of right breast. Multiple bruises to abdominal area. With a large bruise to the left side of abdomen. Noted some reddness in panis. No open areas. Cath care done. Patient repostioned.
[2020-11-15] VITALS (178 sets, daily range): BP systolic 89–177; BP diastolic 48–90; PULSE 61–84; TEMP 98.4–99.1; O2SAT 88–97
--- NOTE | 2020-11-15 02:58 | NUR ---
0100- In room to change patient and reposition. Tube feeding placed on hold. Patient just completed trach care and suctioning with RT. Patient placed in prone position. Large stool cleaned that was leaking around rectal tube. Cath care given. Patient repostioned to the right at this time. Catheter Stat lock changed as it was soiled. PICC line dressing change done as dressing was loose and coming off. Dressing changed to PEG tube. 0130 - Patient increasingly anxious and attempting to mouth words. RT back into room as patient was coughing; vent was alarming. 02 sats upper 80's. Suctioning done again by RT to see if patient would calm down. Precedex increased to 0.7 at this time for increasing anxiety. 0150 - Call placed to charge nurse Christa for assistance. Patient continue to have increased anxiety. Mouthing words. Patient given dry erase board but he is unable to write at this time. Lungs continue to be coarse; no significant change from earlier. Oral suctioning; nasophargenyl suctioning and trach suctioning done by RT. Patient continues to be anxious 0200 - Looked as patient was attempting to gag. Ask if nauseated. Patient nodded. Call placed to JUAN Redman. New order for Zofran. Zofran 4mg given IV at this time. Patient skin warm and diaphretic. Continues to be anxious. 0220 - Patient given Versed 5mg bolus at this time to see if he would calm down. 0230 - Patient repostioned by staff. Pericare given again. Still no relief. Patient's 02 sats continue to be in the upper 80's with vent at 100% 02 0250 - Call placed to JUAN Redman for assistance in patients conditon. Resp labored and coarse sounding. Lungs remain unchanged. Suctioning done again by RT. Patient continues to be anxious. JUAN Redman called Janel - New orders to increase Fentanyl to 150 mcg; Increase Versed to 6mg and Precedex to 0.8. Patient repostioned again. Staff encouraging patient to deep breath and cough. Suction of secretions done by RN and RT.
--- NOTE | 2020-11-15 03:19 | NUR ---
Patient calmer. Was able to understand that he wanted his glasses. He also wants a beer. Patient breathing easier. Restraints off at this time as this was fustrating patient even more. Patient is understanding to not pull at vent tubing or trach. Will monitor patient. Encourage rest at this time. Skipped oral care as patient is finally calm
[2020-11-15 04:18] LABS: ARTERIAL BLD GAS O2 SATURATION 94.7 % (92-100); ARTERIAL BLD GAS TCO2 CT 27.7; ARTERIAL BLOOD GAS BASE EXCESS 1.9 (-2-2); ARTERIAL BLOOD GAS HCO3 26.4 meq/L (22-26); ARTERIAL BLOOD GAS PCO2 41.1 mmHg (35-45); ARTERIAL BLOOD GAS pH 7.43 (7.35-7.45)
--- NOTE | 2020-11-15 04:28 | NUR ---
Patient much calmer. Sitting at approx 45 degree angle. Restraints remain off at this time. No new changes in sedation. Patient assessment completed and no changes from earlier this PM. Patient is sleeping at this time. Noted audible gurgling; Lungs less coarse. 02 sats 96%. Tube feeding remains on hold. No further nausea. Oral care held at this time as patient is finally resting.
[2020-11-15 05:47] LABS: BASO % 0.1 % (0.0-2.0); EOS # 0.4 (0.0-0.7); EOS % 5.8 % (0-4.0); GRAN # 5.2 (1.4-6.5); GRAN % 71.7 % (42.2-75.2); LYMPH # 1.2 (1.2-3.4); LYMPH % 15.8 % (20.0-51.0); MEAN CELL VOLUME 85 fl (80.0-100.0); MEAN CORPUSCULAR HGB CONC 32 g/dl (33.0-37.0); MEAN PLATELET VOLUME 9.5 fl (7.4-10.4); MONO # 0.5 (0.1-0.6); MONO % 6.2 % (1.7-9.3); PLATELET COUNT 143 K/mm3 (130-400); RED BLOOD COUNT 2.79 M/mm3 (4.20-5.60); REDCELL DISTRIBUTION WIDTH-CV 15.1 % (11.5-14.5)
[2020-11-15 05:48] LABS: HEMATOCRIT 23.8 % (42.0-52.0); HEMOGLOBIN 7.6 g/dl (13.5-18.0); MEAN CORPUSCULAR HEMOGLOBIN 27 pg (27.0-31.0)
[2020-11-15 06:12] LABS: ALBUMIN 3.2 gm/dL (3.5-5.0); BILIRUBIN,TOTAL 0.9 mg/dL (0.0-1.0); C-REACTIVE PROTEIN 5.2 mg/dL (0.0-0.9); CALCIUM 8.1 mg/dL (8.4-10.2); CREATININE, serum 0.99 (0.66-1.25); MAGNESIUM 1.5 mg/dL (1.6-2.3); POTASSIUM 3.3 mmol/L (3.4-5.0); TOTAL PROTEIN 6.3 gm/dL (6.4-8.2)
--- NOTE | 2020-11-15 08:11 | NUR ---
Patient coughing frequently. An audible gurgling sound can be heard from around the trach site. Cuff pressures are within nornal range. Suctioning performed and gurgling sound continues. RT also at bedside to trouble shoot. Dr. Phillips notified and will come to see patient.
--- NOTE | 2020-11-15 08:48 | NUR ---
Dr. Phillips at bedside to see patient. Observed into trach with scope and was determined to be in the proper place. Added one ml of air to cuff. Vent stopped alarming briefly but then continued alarming with frequent coughing and gurgling noise. Chest xray reviewed by Dr. Phillips. No new orders given at this time. Will continue to monitor.
--- NOTE | 2020-11-15 10:13 | NUR ---
Dr. Mayes at bedside to see patient. Attempting to adjust vent settings to help with ventilator leak and frequent coughing. RT also at bedside at this time.
--- NOTE | 2020-11-15 12:00 | NUR ---
Trach continuing to make gurgling noises. Instructed to inflate cuff to 50 to prevent leak. RT at bedside to increase cuff pressure. Gurgling stop with pressure at 50. Will continue to monitor.
--- NOTE | 2020-11-15 17:31 | NUR ---
Patient awakens easily on current sedation and is able to follow commands and answer yes and no questions appropriately.
--- NOTE | 2020-11-15 18:41 | NUR ---
Resting comfortably in bed; tolerating ventilator well. Will continue to monitor.
--- NOTE | 2020-11-15 19:30 | NUR ---
Bedside report given to JAROD Lobo. Patient care transfered.
--- NOTE | 2020-11-15 21:15 | NUR ---
PATIENT BEGINS COUGHIN UNABLE TO STOP/BECOMES PALE, aggresive attempts to speak, respiratory prersent, suction airway, no drainage or leak, patient unable to calm self O2 SATS LOW 80s. meds administered, IV MEDS drips increased, patient is asleep by midnight resting comfortable, IV DRIPS TITRATED BACK TO ORIGINAL DOSE
[2020-11-16] VITALS (261 sets, daily range): BP systolic 93–164; BP diastolic 44–100; PULSE 61–85; TEMP 98.1–99.6; O2SAT 87–97
--- NOTE | 2020-11-16 05:24 | NUR ---
PATIENT HAS AWKENED AGAIN FIGHT ING THE TRACH AND VENT, MEDS BEING ADMINISTERED
[2020-11-16 05:42] LABS: BASO % 0.1 % (0.0-2.0); EOS # 0.4 (0.0-0.7); EOS % 6.2 % (0-4.0); GRAN % 70.2 % (42.2-75.2); LYMPH # 1.1 (1.2-3.4); LYMPH % 15.8 % (20.0-51.0); MEAN CORPUSCULAR HGB CONC 30 g/dl (33.0-37.0); MEAN PLATELET VOLUME 9.7 fl (7.4-10.4); MONO # 0.5 (0.1-0.6); PLATELET COUNT 164 K/mm3 (130-400); REDCELL DISTRIBUTION WIDTH-CV 15.9 % (11.5-14.5)
[2020-11-16 05:43] LABS: HEMATOCRIT 25.2 % (42.0-52.0); HEMOGLOBIN 7.6 g/dl (13.5-18.0); MEAN CELL VOLUME 90 fl (80.0-100.0); MEAN CORPUSCULAR HEMOGLOBIN 27 pg (27.0-31.0)
[2020-11-16 06:11] LABS: ARTERIAL BLD GAS O2 SATURATION 89.5 % (92-100); ARTERIAL BLD GAS TCO2 CT 25.4; ARTERIAL BLOOD GAS BASE EXCESS -0.3 (-2-2); ARTERIAL BLOOD GAS HCO3 24.2 meq/L (22-26); ARTERIAL BLOOD GAS PO2 59.9 mmHg (80-100); ARTERIAL BLOOD GAS pH 7.41 (7.35-7.45)
--- NOTE | 2020-11-16 07:15 | NUR ---
BEDSIDE SHIFT REPORT RECEIVED FROM JAROD HOUSE. PATIENT IS RESTING IN BED WITH EYES CLOSED, SEDATED AND ON THE VENTILATOR. PATIENT HAS MILTON CATHTER, RIGHT UPPER ARM PICC, PEG TUBE AND FECAL MANAGEMENT STILL IN PLACE. VSS. PATIENT IS COUGHING BUT TOLERATING THE VENT. TELEVISION IS ON FOR STIMULATION.
[2020-11-16 07:22] LABS: ALBUMIN 3.3 gm/dL (3.5-5.0); CALCIUM 7.9 mg/dL (8.4-10.2); CREATININE, serum 1.06 (0.66-1.25); POTASSIUM 3.9 mmol/L (3.4-5.0); TOTAL PROTEIN 6.5 gm/dL (6.4-8.2)
[2020-11-16 07:34] LABS: C-REACTIVE PROTEIN 12.5 mg/dL (0.0-0.9)
--- NOTE | 2020-11-16 09:27 | NUR ---
DR. PAT AT BEDSIDE. RECOMMENDING TAPERING OFF SEDATION. THIS NURSE REQUESTING ALTERNATIVE FOR ANXIETY SINCE WE WILL BE WEANING SEDATION. AGREEABLE.
--- NOTE | 2020-11-16 13:41 | NUR ---
CALLED DR. PAT TO SEE IF ADDING SEROQUEL MIGHT HELP WITH ANXIETY ON VENTILATOR WELL. DR. PAT AGREEABLE
--- NOTE | 2020-11-16 17:00 | NUR ---
PATIENT UNABLE TO TOLERATE DECREASE IN SEDATION WITHOUT COUGHING OVER VENTILATOR. NO SEDATION VACATION TODAY
--- NOTE | 2020-11-16 19:15 | NUR ---
Received report from JAROD Brunner.
--- NOTE | 2020-11-16 20:15 | NUR ---
Patient resting quietly in bed. He is tolerating the ventilator well. Oxygen saturation mid 90s. All vitals within normal limits. Continues to receive precedex, fentanyl, and versed drips. Rates confirmed at bedside during shift report. Patient awakens easily to speech and follows verbal commands. He appears quite drowsy, but comfortable. No further needs noted.
[2020-11-17] VITALS (931 sets, daily range): BP systolic 94–169; BP diastolic 45–752; PULSE 60–85; TEMP 98.1–100.6; O2SAT 82–96
--- NOTE | 2020-11-17 05:00 | NUR ---
Patient currently awake, alert, and following verbal commands. He is overbreathing the vent, with respirations ranging mid-high 30s, and frequently coughing. Oxygen saturation mid 80s. No sedation vacation performed at this time.
[2020-11-17 05:14] LABS: BASO % 0.2 % (0.0-2.0); EOS # 0.4 (0.0-0.7); EOS % 6.1 % (0-4.0); GRAN % 69.1 % (42.2-75.2); MEAN CORPUSCULAR HGB CONC 32 g/dl (33.0-37.0); MEAN PLATELET VOLUME 9.8 fl (7.4-10.4); MONO # 0.3 (0.1-0.6); MONO % 5.9 % (1.7-9.3); PLATELET COUNT 151 K/mm3 (130-400); REDCELL DISTRIBUTION WIDTH-CV 15.7 % (11.5-14.5)
[2020-11-17 05:16] LABS: MEAN CELL VOLUME 85 fl (80.0-100.0); MEAN CORPUSCULAR HEMOGLOBIN 27 pg (27.0-31.0)
[2020-11-17 05:17] LABS: ARTERIAL BLD GAS O2 SATURATION 88.4 % (92-100); ARTERIAL BLD GAS TCO2 CT 27.4; ARTERIAL BLOOD GAS HCO3 26.1 meq/L (22-26); ARTERIAL BLOOD GAS PCO2 43.8 mmHg (35-45); ARTERIAL BLOOD GAS PO2 57.7 mmHg (80-100); ARTERIAL BLOOD GAS pH 7.39 (7.35-7.45)
[2020-11-17 05:27] LABS: ALBUMIN 3.1 gm/dL (3.5-5.0); BILIRUBIN,TOTAL 0.8 mg/dL (0.0-1.0); C-REACTIVE PROTEIN 7.9 mg/dL (0.0-0.9); CALCIUM 7.9 mg/dL (8.4-10.2); CREATININE, serum 1.11 (0.66-1.25); POTASSIUM 3.9 mmol/L (3.4-5.0); TOTAL PROTEIN 6.3 gm/dL (6.4-8.2)
--- NOTE | 2020-11-17 07:30 | NUR ---
Patient breathing over the ventilator and appears labored. 02 mid 80's on 85% FI02. Patient reported feeling short of breath. Sedation increased to help tolerate vent and RT notified and Fi02 increased to 90%. Will continue to monitor.
--- NOTE | 2020-11-17 09:00 | NUR ---
Dr. Torres notified of patient's increased difficulty tolerating the ventilator. Increased respirations and needing higher levels of Fi02. Cuff inflated to 50 ml to prevent air leak around trach cuff. Dr. Torres stated that there is nothing different to do at this time but may increase sedation to help keep patient calm .
--- NOTE | 2020-11-17 09:28 | NUR ---
pattern layout worker spoke with Nayana at [facility] and faxed clinical updates. Will await if [facility] has a bed for acceptance.
--- NOTE | 2020-11-17 16:39 | NUR ---
Tolerating ventilator well at this time. Will continue to monitor.
--- NOTE | 2020-11-17 17:31 | NUR ---
Sedation vacation not performed as patient begins coughing continuously and has difficulty tolerating the ventilator when sedation is reduced.
[2020-11-17 18:30] LABS: HEMATOCRIT 22.8 % (42.0-52.0)
--- NOTE | 2020-11-17 19:15 | NUR ---
Received report from JAROD Davenport.
--- NOTE | 2020-11-17 21:34 | NUR ---
Юлия, hospitalist, notified of patient's BG of 100; 70 units levemir scheduled to administer at this time. Received orders to administer levemir and to recheck glucose at midnight. Also notified of hemoglobin recheck of 7; received orders to hold tonight's lovenox.
[2020-11-18] VITALS (538 sets, daily range): BP systolic 86–161; BP diastolic 37–67; PULSE 69–79; TEMP 99.1–100.9; O2SAT 66–94
--- NOTE | 2020-11-18 03:53 | NUR ---
Throughout shift, patient has required increases in both PEEP and FiO2 to maintain O2 saturations above 90%. Currently, patient receiving 100% FiO2 with a PEEP of 17, O2 saturation 88-91%, dipping as low as 78% at times. Loud gurgling noted from patient. RT, Yoana, states trach cuff pressure is up to 65 cmH2O to manage air leak. Able to pass suction catheter without difficulty. Small amounts of amaya/yellow secretions noted. PEEP at 1900 shift change had been 13, with an FiO2 of 90%. [facility] physician, Dr. Arriaza, notified of the above at 033. He recommended I notify ENT to exchange the trach. Dr. Greenberg with ENT notified at 034. I advocated my concern for the patient's airway and poor progression since receiving trach on 11/12. Prior to receiving the trach, patient was on 55% FiO2 with a PEEP of 12. Since Tuesday, 11/15, patient has required increased amounts of sedation in order to tolerate trach, and vent settings have also been increased to maintain saturations above 90%. Dr. Greenberg recommended patient receive bronch in order to assess for blockage. He also recommended we deflate trach cuff and then to reinflate slowly as this is what Dr. Phillips with ENT did Tuesday at time of her evaluation. I reinforced to Dr. Greenberg that patient is currently satting low-mid 80s at this time. Dr. Greenberg states he will arrive at bedside shortly to assess patient.
--- NOTE | 2020-11-18 04:27 | NUR ---
Dr. Greenberg at bedside.
--- NOTE | 2020-11-18 05:00 | NUR ---
Patient's O2 saturation low 80s on 100% FiO2. No sedation vacation performed at this time.
[2020-11-18 05:27] LABS: ARTERIAL BLD GAS O2 SATURATION 83.3 % (92-100); ARTERIAL BLD GAS TCO2 CT 26.4; ARTERIAL BLOOD GAS BASE EXCESS -0.9 (-2-2); ARTERIAL BLOOD GAS PCO2 47.1 mmHg (35-45); ARTERIAL BLOOD GAS PO2 51.7 mmHg (80-100); ARTERIAL BLOOD GAS pH 7.34 (7.35-7.45)
--- NOTE | 2020-11-18 05:52 | NUR ---
Per Dr. Greenberg, patient to go back to OR for trach exchange as soon as possible. ARMANDO Hinton, notified and consent obtained. Also received consent to administer blood products if needed.
--- NOTE | 2020-11-18 06:25 | NUR ---
Dr. Greenberg at bedside with anesthesia. According to Dr. Greenberg, appropriate trach necessary for exchange is not in house. Procedure on hold at this time. Dr. Greenberg aware patient's O2 sat is 82% on 100% FiO2 with PEEP of 20, as ordered by [facility] physician Dr. Arriaza at 0615.
--- NOTE | 2020-11-18 06:36 | NUR ---
Notified [facility] physician, Dr. Arriaza, trach exchange on hold at this time. Oxygen saturations low-mid 80s for approximately last 90 minutes. Received orders to administer a vec push.
--- NOTE | 2020-11-18 07:19 | NUR ---
Report given to JAROD Davenport.
[2020-11-18 07:26] LABS: BASO % 0.3 % (0.0-2.0); EOS % 10.3 % (0-4.0); GRAN # 6.1 (1.4-6.5); GRAN % 65.6 % (42.2-75.2); LYMPH # 1.5 (1.2-3.4); MEAN CELL VOLUME 86 fl (80.0-100.0); MEAN CORPUSCULAR HGB CONC 32 g/dl (33.0-37.0); MEAN PLATELET VOLUME 10.3 fl (7.4-10.4); MONO # 0.6 (0.1-0.6); MONO % 6.9 % (1.7-9.3); PLATELET COUNT 185 K/mm3 (130-400); RED BLOOD COUNT 2.77 M/mm3 (4.20-5.60); REDCELL DISTRIBUTION WIDTH-CV 16.2 % (11.5-14.5)
[2020-11-18 07:27] LABS: HEMATOCRIT 23.7 % (42.0-52.0); HEMOGLOBIN 7.5 g/dl (13.5-18.0); MEAN CORPUSCULAR HEMOGLOBIN 27 pg (27.0-31.0)
[2020-11-18 07:31] LABS: CALCIUM 7.8 mg/dL (8.4-10.2); CREATININE, serum 1.3 (0.66-1.25); POTASSIUM 3.8 mmol/L (3.4-5.0)
--- NOTE | 2020-11-18 09:30 | NUR ---
Patient dusky with 02 in the low 80's. Pulse weak and difficult to find. Dr. Torres notified. Called Dr. Phillips to ask about progress with finding the correct trach and when they could take the patient back to OR. This nurse was initially told that patient was scheduled for "noon" This nurse told Dr. Phillips that that patient was doing very poorly and would likely not "live until noon". Dr. Phillips stated she will call her collegues and Call this nurse back.
--- NOTE | 2020-11-18 09:35 | NUR ---
DR GOEL NOTIFIED POX 78-81%, SBP 70-80. DR GOEL AT BEDSIDE
--- NOTE | 2020-11-18 09:44 | NUR ---
Precedex placed on standby per Dr. Torres.
--- NOTE | 2020-11-18 10:00 | NUR ---
Dr. Greenberg and Dr. Phillips at bedside to see patient. Will go to CT then to OR for trach exchange.
--- NOTE | 2020-11-18 10:09 | NUR ---
Transfered patient off unit to obtain a Chest CT. Transfered directly from CT to OR for trach exchange.
--- NOTE | 2020-11-18 11:20 | NUR ---
Returned from OR. O2 low 80's then down to mid 70's. Ventilator assessed and functioning appropriately. Dr. Torres notified and will do a bronchcoscopy.
[2020-11-18 11:43] LABS: ARTERIAL BLD GAS O2 SATURATION 83.1 % (92-100); ARTERIAL BLD GAS TCO2 CT 25.4; ARTERIAL BLOOD GAS BASE EXCESS -3.9 (-2-2); ARTERIAL BLOOD GAS HCO3 23.7 meq/L (22-26); ARTERIAL BLOOD GAS PCO2 56.9 mmHg (35-45); ARTERIAL BLOOD GAS PO2 56.7 mmHg (80-100); ARTERIAL BLOOD GAS pH 7.24 (7.35-7.45)
--- NOTE | 2020-11-18 12:30 | NUR ---
Bronch performed by Dr. Torres at bedside. Suctioned out copious amounts of Yellow and blood tinged sputum. Sent sample to lab. Finished bronch at 1235. Patient's 02 in the 70's prior to the procedure and remained in the 70"s throughout the procedure. BP stable. Will continue to monitor.
[2020-11-18 16:09] LABS: ARTERIAL BLD GAS O2 SATURATION 84.7 % (92-100); ARTERIAL BLD GAS TCO2 CT 28.6; ARTERIAL BLOOD GAS BASE EXCESS 0.7 (-2-2); ARTERIAL BLOOD GAS PCO2 52.1 mmHg (35-45); ARTERIAL BLOOD GAS PO2 49.9 mmHg (80-100); ARTERIAL BLOOD GAS pH 7.33 (7.35-7.45)
--- NOTE | 2020-11-18 17:00 | NUR ---
Patient open eyes very subtly to verbal command on two occasions. No other commands followed. 02 has slowly increased from the 70's to the mid 80's since returning from OR. No changes made at this time.
--- NOTE | 2020-11-18 17:45 | NUR ---
Dr. Torres notified about latest ABG results. Can increase PEEP from 21 to 22. No other changes ordered at this time.
--- NOTE | 2020-11-18 19:15 | NUR ---
Received report from JAROD Davenport.
--- NOTE | 2020-11-18 20:15 | NUR ---
Patient resting quietly in bed. Tolerating ventilator well. He continues to receive a PEEP of 22 with FiO2 of 100%. Oxygen saturations low-mid 80s. All other vitals within normal limits. Patient appears pale/greyish in color; pulses are weak. He does not respond to verbal or painful stimuli. Fentanyl and Versed titrated down according to orders. Also receiving Precedex and Sodium Bicarb drips. Levophed on standby at this time.
[2020-11-19] VITALS (825 sets, daily range): BP systolic 102–126; BP diastolic 43–65; PULSE 73–79; TEMP 98.5–101.1; O2SAT 55–100
[2020-11-19 00:13] LABS: ARTERIAL BLD GAS O2 SATURATION 90.6 % (92-100); ARTERIAL BLOOD GAS HCO3 26.4 meq/L (22-26); ARTERIAL BLOOD GAS PCO2 52.9 mmHg (35-45); ARTERIAL BLOOD GAS PO2 64.5 mmHg (80-100); ARTERIAL BLOOD GAS pH 7.32 (7.35-7.45)
[2020-11-19 04:33] LABS: ARTERIAL BLOOD GAS BASE EXCESS 0.5 (-2-2); ARTERIAL BLOOD GAS HCO3 26.5 meq/L (22-26); ARTERIAL BLOOD GAS PCO2 49.4 mmHg (35-45); ARTERIAL BLOOD GAS PO2 64.1 mmHg (80-100); ARTERIAL BLOOD GAS pH 7.35 (7.35-7.45)
[2020-11-19 05:49] LABS: BASO % 0.1 % (0.0-2.0); EOS # 0.1 (0.0-0.7); EOS % 0.6 % (0-4.0); GRAN # 6.7 (1.4-6.5); GRAN % 83.7 % (42.2-75.2); LYMPH # 0.8 (1.2-3.4); LYMPH % 9.6 % (20.0-51.0); MEAN CELL VOLUME 86 fl (80.0-100.0); MEAN CORPUSCULAR HGB CONC 32 g/dl (33.0-37.0); MEAN PLATELET VOLUME 9.4 fl (7.4-10.4); MONO # 0.4 (0.1-0.6); PLATELET COUNT 165 K/mm3 (130-400); REDCELL DISTRIBUTION WIDTH-CV 16.5 % (11.5-14.5)
[2020-11-19 05:58] LABS: CALCIUM 7.4 mg/dL (8.4-10.2); CREATININE, serum 1.65 (0.66-1.25); POTASSIUM 4.8 mmol/L (3.4-5.0)
[2020-11-19 06:06] LABS: HEMATOCRIT 21.6 % (42.0-52.0); HEMOGLOBIN 6.8 g/dl (13.5-18.0); MEAN CORPUSCULAR HEMOGLOBIN 27 pg (27.0-31.0)
--- NOTE | 2020-11-19 07:32 | NUR ---
Report given to JAROD Gonzalez.
[2020-11-19 13:00] LABS: COLLECTION METHOD CATHETER
[2020-11-19 14:01] LABS: AMORPHOUS CRYSTAL Present /uL; MUCOUS Present /lpf; PH 5 (5-8); SQUAMOUS EPITHELIAL None Seen /hpf; URINE APPEARANCE Cloudy; URINE BACTERIA Rare /hpf; URINE BILIRUBIN Negative (NEGATIVE); URINE BLOOD 2+ (NEGATIVE); URINE COLOR Amber; URINE GLUCOSE Negative (NEGATIVE); URINE KETONE Negative (NEGATIVE); URINE LEUKOCYTE ESTERASE 1+ (NEGATIVE); URINE NITRATE Negative (NEGATIVE); URINE PROTEIN(semi-quant) Negative (NEGATIVE); URINE WBC 20-50 /hpf
[2020-11-19 14:51] LABS: CLOSTRIDIUM DIFF A/B POS; CLOSTRIDIUM DIFF A/B INTERP Toxigenic C.diff POS
[2020-11-19 15:07] LABS: HEMATOCRIT 22.9 % (42.0-52.0); HEMOGLOBIN 7.2 g/dl (13.5-18.0)
--- NOTE | 2020-11-19 17:50 | NUR ---
STOPPED PRECEDEX THIS MORNING AT APPROX 0800; PATIENT HAS BEEN MORE ALERT AND RESPONSIVE
--- NOTE | 2020-11-19 19:56 | NUR ---
STOPPED PRECEDEX PATIENT WAS OVERSEDATED
--- NOTE | 2020-11-19 20:00 | NUR ---
REPORTED OFF TO JAROD TOBAR; PATIENT RESTING IN BED
--- NOTE | 2020-11-19 23:47 | NUR ---
notified Dr. Arriaza with e care of patient continued blood sugars above 200's stated to continue with using sliding scale as ordered
[2020-11-20] VITALS (795 sets, daily range): BP systolic 115–139; BP diastolic 54–86; PULSE 77–87; TEMP 97.5–99.1; O2SAT 61–100
--- NOTE | 2020-11-20 01:14 | NUR ---
PATIENT NOTED TO HAVE MODERATE AMOUNT OF LOOSE BROWN BM THAT LEAKED AROUND FLEXI-SEAL RECTAL TUBE INCONTINENT CARE PROVIDED AT THIS TIME WITH CLEAN DRY YAMILETH PADS PLACED
[2020-11-20 02:59] LABS: ARTERIAL BLD GAS O2 SATURATION 98.2 % (92-100); ARTERIAL BLD GAS TCO2 CT 27.4; ARTERIAL BLOOD GAS BASE EXCESS 1.7 (-2-2); ARTERIAL BLOOD GAS HCO3 26.2 meq/L (22-26); ARTERIAL BLOOD GAS PCO2 40.4 mmHg (35-45); ARTERIAL BLOOD GAS PO2 114.8 mmHg (80-100); ARTERIAL BLOOD GAS pH 7.43 (7.35-7.45)
[2020-11-20 03:18] LABS: BASO % 0.1 % (0.0-2.0); EOS # 0.1 (0.0-0.7); EOS % 1.2 % (0-4.0); GRAN # 7.5 (1.4-6.5); GRAN % 82.8 % (42.2-75.2); HEMATOCRIT 23.7 % (42.0-52.0); HEMOGLOBIN 7.6 g/dl (13.5-18.0); LYMPH # 0.9 (1.2-3.4); LYMPH % 10.3 % (20.0-51.0); MEAN CELL VOLUME 83 fl (80.0-100.0); MEAN CORPUSCULAR HEMOGLOBIN 27 pg (27.0-31.0); MEAN CORPUSCULAR HGB CONC 32 g/dl (33.0-37.0); MEAN PLATELET VOLUME 9.8 fl (7.4-10.4); MONO # 0.4 (0.1-0.6); MONO % 4.5 % (1.7-9.3); PLATELET COUNT 184 K/mm3 (130-400); RED BLOOD COUNT 2.85 M/mm3 (4.20-5.60); REDCELL DISTRIBUTION WIDTH-CV 15.9 % (11.5-14.5)
[2020-11-20 03:34] LABS: CALCIUM 7.7 mg/dL (8.4-10.2); CREATININE, serum 1.5 (0.66-1.25); MAGNESIUM 2.1 mg/dL (1.6-2.3); POTASSIUM 4.2 mmol/L (3.4-5.0)
[2020-11-20 03:45] LABS: C-REACTIVE PROTEIN 17.2 mg/dL (0.0-0.9)
--- NOTE | 2020-11-20 19:02 | NUR ---
MR. PATTON HAS BEEN ALERT AND EASILY AROUSED THROUGHOUT THE DAY. WHEN ASKED QUESTIONS HE WILL NOD HIS HEAD YES OR NO AND ANSWERS QUESTIONS SUCH " ARE YOU IN PAIN". MR. PATTON FOLLOWS COMMANDS AND PARTICIPATES IN HIS CARE. WILL CONTINUE TO MONITOR.
[2020-11-21] VITALS (678 sets, daily range): BP systolic 116–152; BP diastolic 60–75; PULSE 68–93; TEMP 97.7–99.1; O2SAT 81–99
[2020-11-21 05:12] LABS: ARTERIAL BLD GAS TCO2 CT 23.1; ARTERIAL BLOOD GAS BASE EXCESS -2.3 (-2-2); ARTERIAL BLOOD GAS PO2 59.9 mmHg (80-100); ARTERIAL BLOOD GAS pH 7.42 (7.35-7.45)
--- NOTE | 2020-11-21 05:36 | NUR ---
HEART RATE INCREASES COUGH INCREASSES PATIENT STRUGGLES WITH TRACH/ AND BREATHING UNABLE TO CALM SELF/ DRIPS RESUME BEFORE VACATION
[2020-11-21 08:03] LABS: MEAN CELL VOLUME 83 fl (80.0-100.0); MEAN CORPUSCULAR HGB CONC 33 g/dl (33.0-37.0); MEAN PLATELET VOLUME 9.7 fl (7.4-10.4); PLATELET COUNT 179 K/mm3 (130-400); RED BLOOD COUNT 2.83 M/mm3 (4.20-5.60); REDCELL DISTRIBUTION WIDTH-CV 15.9 % (11.5-14.5)
[2020-11-21 08:04] LABS: HEMATOCRIT 23.5 % (42.0-52.0); HEMOGLOBIN 7.7 g/dl (13.5-18.0); MEAN CORPUSCULAR HEMOGLOBIN 27 pg (27.0-31.0)
[2020-11-21 08:13] LABS: CALCIUM 7.9 mg/dL (8.4-10.2); CREATININE, serum 1.14 (0.66-1.25); MAGNESIUM 2.3 mg/dL (1.6-2.3); PHOSPHOROUS 2.6 mg/dL (2.5-4.5); POTASSIUM 4.2 mmol/L (3.4-5.0)
[2020-11-21 09:16] LABS: BAND 15 % (0-10); EOSINOPHIL 1 % (0-4); LYMPHOCYTE 14 % (20.0-51.0); NEUTROPHILS 67 % (42.0-75.2); NUCLEATED RED BLOOD CELL 1 (0-6); PLATELET ESTIMATE NORMAL (NORMAL)
--- NOTE | 2020-11-21 15:19 | NUR ---
foundry worker apprentice met with life partner, Mary Jane, and provided education on [facility] process and advised that when patient is stable we will transfer to either [place], [place], and [facility]. Worker provided emotional support to Mary Jane.
--- NOTE | 2020-11-21 15:23 | NUR ---
whiting can worker spoke with Nayana at [facility] and faxed clinical updated information.
[2020-11-22] VITALS (657 sets, daily range): BP systolic 120–155; BP diastolic 57–93; PULSE 70–109; TEMP 97.8–99.1; O2SAT 75–100
--- NOTE | 2020-11-22 04:26 | NUR ---
RT WAS UNAVAILABLE AT THIS TIME
--- NOTE | 2020-11-22 04:26 | NUR ---
RT WAS UNAVAILBLE AT THIS TIME
[2020-11-22 04:49] LABS: MEAN CORPUSCULAR HGB CONC 31 g/dl (33.0-37.0); MEAN PLATELET VOLUME 9.7 fl (7.4-10.4); PLATELET COUNT 156 K/mm3 (130-400); RED BLOOD COUNT 2.74 M/mm3 (4.20-5.60); REDCELL DISTRIBUTION WIDTH-CV 16.4 % (11.5-14.5)
[2020-11-22 04:59] LABS: CREATININE, serum 1.05 (0.66-1.25); HEMATOCRIT 24.2 % (42.0-52.0); HEMOGLOBIN 7.5 g/dl (13.5-18.0); MAGNESIUM 2.3 mg/dL (1.6-2.3); MEAN CELL VOLUME 88 fl (80.0-100.0); MEAN CORPUSCULAR HEMOGLOBIN 27 pg (27.0-31.0); POTASSIUM 4.6 mmol/L (3.4-5.0)
[2020-11-22 05:24] LABS: C-REACTIVE PROTEIN 2.4 mg/dL (0.0-0.9)
--- NOTE | 2020-11-22 05:25 | NUR ---
PATIENT BECOMES AGITATED AND NARANJO VENTILATOR, UNABLE TO CALM SELF MEDS RESUME TO EARLIER TRANSFUSION.
[2020-11-22 05:32] LABS: ARTERIAL BLD GAS TCO2 CT 27.3; ARTERIAL BLOOD GAS BASE EXCESS 1.9 (-2-2); ARTERIAL BLOOD GAS HCO3 26.1 meq/L (22-26); ARTERIAL BLOOD GAS PCO2 39.6 mmHg (35-45); ARTERIAL BLOOD GAS pH 7.44 (7.35-7.45)
[2020-11-22 06:18] LABS: BAND 13 % (0-10); BASOPHIL 1 % (0-2); EOSINOPHIL 3 % (0-4); LYMPHOCYTE 10 % (20.0-51.0); METAMYELOCYTE 2 % (0-0); NEUTROPHILS 65 % (42.0-75.2); PLATELET ESTIMATE NORMAL (NORMAL)
[2020-11-22 06:19] LABS: ANISOCYTOSIS 1+; HYPOCHROMIA 2+
--- NOTE | 2020-11-22 07:45 | NUR ---
Patient coughing against the ventilator at times but mostly tolerating well. Alert and partially oriented. Able to make good eye contact with this nurse and shake head yes and no to questions. Able to squeeze nurses hands very lightly on the left but not the right; appears overall very weak. Will continue to monitor.
--- NOTE | 2020-11-22 16:15 | NUR ---
Patient's o2 87% on 85%. Oral and ET tube suctioned. Received back moderatae amount of bloody sputum. RT notified. Increased Fi02 to 100%. After several minutes 02 back up to low 90's. Will continue to monitor.
--- NOTE | 2020-11-22 17:15 | NUR ---
Patient arouses easily on current sedation. When sedation decreased patient begins coughing forcefully and 02 desaturates. Will continue to monitor.
[2020-11-23] VITALS (661 sets, daily range): BP systolic 124–163; BP diastolic 68–86; PULSE 65–84; TEMP 97.8–99.1; O2SAT 76–99
--- NOTE | 2020-11-23 02:10 | NUR ---
HEART RATE AND B/P BEGIN TO ELEVATE, PATIENT UNCONTROLLED MOVEMENTS IN BED, EDEMA CONTINUES TO INCREASE THORAX AREA IS SOLID A DRUM
--- NOTE | 2020-11-23 02:15 | NUR ---
CALLED [facility] ABOUT PATIENT STATUS/ ADVISED TO ADMINISTER LASIX/ AND LABATALOL, HOSPITALIST PRESENT/ MEDS ADMIMISTERED, OBSERVING, FAMILY PRESENT
[2020-11-23 04:31] LABS: ARTERIAL BLD GAS TCO2 CT 26.9; ARTERIAL BLOOD GAS HCO3 25.6 meq/L (22-26); ARTERIAL BLOOD GAS PCO2 40.9 mmHg (35-45); ARTERIAL BLOOD GAS PO2 64.5 mmHg (80-100); ARTERIAL BLOOD GAS pH 7.42 (7.35-7.45)
[2020-11-23 04:41] LABS: MEAN CELL VOLUME 87 fl (80.0-100.0); MEAN CORPUSCULAR HGB CONC 31 g/dl (33.0-37.0); MEAN PLATELET VOLUME 9.7 fl (7.4-10.4); PLATELET COUNT 162 K/mm3 (130-400); RED BLOOD COUNT 2.85 M/mm3 (4.20-5.60); REDCELL DISTRIBUTION WIDTH-CV 16.4 % (11.5-14.5)
[2020-11-23 04:45] LABS: HEMATOCRIT 24.8 % (42.0-52.0); HEMOGLOBIN 7.7 g/dl (13.5-18.0); MEAN CORPUSCULAR HEMOGLOBIN 27 pg (27.0-31.0)
[2020-11-23 04:55] LABS: CALCIUM 8.2 mg/dL (8.4-10.2); CREATININE, serum 0.9 (0.66-1.25); MAGNESIUM 2.2 mg/dL (1.6-2.3); POTASSIUM 4.9 mmol/L (3.4-5.0)
--- NOTE | 2020-11-23 05:14 | NUR ---
PATIENT CALM AND ALERT,
[2020-11-23 05:24] LABS: BAND 1 % (0-10); LYMPHOCYTE 5 % (20.0-51.0); MYELOCYTE 2 % (0-0); NEUTROPHILS 90 % (42.0-75.2)
[2020-11-23 05:25] LABS: ANISOCYTOSIS 1+; HYPOCHROMIA 1+; MICROCYTOSIS 1+; PLATELET ESTIMATE NORMAL (NORMAL); POIKILOCYTOSIS 1+
[2020-11-23 05:26] LABS: OVALOCYTES 1+
--- NOTE | 2020-11-23 17:00 | NUR ---
Left radial Arterial line discontinued. Pressure applied then pressure dressing left in place.
--- NOTE | 2020-11-23 18:00 | NUR ---
Resting in bed; tolerating ventilator well at this time. Will continue to monitor.
[2020-11-24] VITALS (707 sets, daily range): BP systolic 136–153; BP diastolic 70–83; PULSE 69–78; TEMP 97.5–99.1; O2SAT 92–100
[2020-11-24 06:24] LABS: MEAN CELL VOLUME 89 fl (80.0-100.0); MEAN CORPUSCULAR HGB CONC 30 g/dl (33.0-37.0); MEAN PLATELET VOLUME 9.7 fl (7.4-10.4); PLATELET COUNT 181 K/mm3 (130-400); RED BLOOD COUNT 2.89 M/mm3 (4.20-5.60); REDCELL DISTRIBUTION WIDTH-CV 16.5 % (11.5-14.5)
[2020-11-24 06:25] LABS: ARTERIAL BLD GAS O2 SATURATION 97.1 % (92-100); ARTERIAL BLD GAS TCO2 CT 30.6; ARTERIAL BLOOD GAS BASE EXCESS 2.8 (-2-2); ARTERIAL BLOOD GAS PCO2 53.6 mmHg (35-45); ARTERIAL BLOOD GAS PO2 93.9 mmHg (80-100); ARTERIAL BLOOD GAS pH 7.35 (7.35-7.45)
[2020-11-24 06:37] LABS: CALCIUM 8.1 mg/dL (8.4-10.2); CREATININE, serum 0.79 (0.66-1.25); MAGNESIUM 2.1 mg/dL (1.6-2.3); PHOSPHOROUS 3.6 mg/dL (2.5-4.5); POTASSIUM 5.4 mmol/L (3.4-5.0)
--- NOTE | 2020-11-24 06:43 | NUR ---
PT TOLERATING CURRENT SEDATION VERY WELL ON VENTILATOR. TRACKS AND NODS APPROPRIATELY. ABLE TO COUGH AND SETTLE BREATHING TO VENT SETTINGS QUICKLY. APPEARS VERY COMFORTABLE WHILE ALSO EASY TO WAKE UP.
[2020-11-24 06:49] LABS: HEMATOCRIT 25.7 % (42.0-52.0); HEMOGLOBIN 7.7 g/dl (13.5-18.0); MEAN CORPUSCULAR HEMOGLOBIN 27 pg (27.0-31.0)
[2020-11-24 06:50] LABS: ANISOCYTOSIS 2+; BAND 6 % (0-10); HYPOCHROMIA 1+; LYMPHOCYTE 7 % (20.0-51.0); NEUTROPHILS 84 % (42.0-75.2); POIKILOCYTOSIS 2+
[2020-11-24 06:51] LABS: MICROCYTOSIS 1+; OVALOCYTES 1+; PLATELET ESTIMATE NORMAL (NORMAL)
--- NOTE | 2020-11-24 07:40 | NUR ---
BEDSIDE SHIFT REPORT RECEIVED FROM JAROD HOLDER. PATIENT RESTING COMFORTABLY IN BED WITH EYES OPEN AND TELEVISION ON FOR STIMULATION. VSS. RIGHT UPPER ARM PICC IN PLACE WITH SEDATION RUNNING. SEE GTT TITRATION FLOWSHEET. MILTON CATHETER AND FECAL MANAGEMENT SYSTEM STILL IN PLACE. WILL ASSESS FURTHER FOR NEW SKIN BREAKDOWN. TUBEFEEDING PATENT AND RUNNING.
--- NOTE | 2020-11-24 09:17 | NUR ---
DR. GOEL AT BEDSIDE, DISCUSSED TRACH EXCHANGE AND ABG NEEDS. TOLD TO CALL ENT OFFICE FOR ASSESSMENT OF TRACH EXCHANGE. WILL UPDATE WHEN I CALL.
--- NOTE | 2020-11-24 12:16 | NUR ---
SPOKE TO DR. MARC REGARDING TRACH EXCHANGE BECAUSE OF CUFF LEAK. SAID HE WOULD SEND SOMEONE WITHIN THE NEXT 24 HOURS TO CHECK ON PATIENT AND ASSESS NEEDS.
--- NOTE | 2020-11-24 16:00 | NUR ---
UPDATED DR. GOEL ON ENT ASSESSMENT.
[2020-11-24 20:33] LABS: PHOSPHOROUS 2.8 mg/dL (2.5-4.5); POTASSIUM 4.9 mmol/L (3.4-5.0)
--- NOTE | 2020-11-24 21:00 | NUR ---
ENT DR. MARC VISITED PT AT BEDSIDE TO ASSESS CUFF LEAK ON TRACH. AFTER ASSESSING PT, DOES NOT BELIEVE CUFF LEAK IS A PROBLEM. SUGGESTS THAT WE DO NOT PUT GAUZE UNDER TRACH BUT DOES NOT WANT TO INTERVENE ON CUFF UNLESS IT BECOMES A PROBLEM FOR PT OXYGENATION. RT DISCUSSED POSSIBLE INFECTION OF TRACH OR SURROUNDING AREA D/T ODOR COMING FROM PT'S MOUTH AND YELLOW SPOTS IN PT SKIN UNDER TRACH OBRIEN. DR. MARC SUGGESTS AGAIN NOT USING GAUZE AND LETTING THAT SKIN DRY OUT AND USING GLYCERINE SWABS TO ENCOURAGE PT PRODUCTION OF SALIVA WHICH WOULD HELP WITH DRY MOUTH AND HELP KEEP MOUTH CLEAN.
--- NOTE | 2020-11-24 21:00 | NUR ---
DR. MARC ALSO REMOVED SUTURES FROM TRACH DURING BEDSIDE ASSESSMENT OF PATIENT.
--- NOTE | 2020-11-24 23:20 | NUR ---
PT VENT ALARMING FOR HIGH TIDAL VOLUMES AND PT REPEATEDLY COUGHING.
[2020-11-25] VITALS (699 sets, daily range): BP systolic 115–160; BP diastolic 59–82; PULSE 70–80; TEMP 98–100.1; O2SAT 79–100
[2020-11-25 00:02] LABS: ARTERIAL BLD GAS O2 SATURATION 94.6 % (92-100); ARTERIAL BLOOD GAS BASE EXCESS 0.2 (-2-2); ARTERIAL BLOOD GAS HCO3 24.8 meq/L (22-26); ARTERIAL BLOOD GAS PO2 77.4 mmHg (80-100); ARTERIAL BLOOD GAS pH 7.41 (7.35-7.45)
[2020-11-25 04:33] LABS: MEAN CELL VOLUME 89 fl (80.0-100.0); MEAN CORPUSCULAR HGB CONC 31 g/dl (33.0-37.0); MEAN PLATELET VOLUME 9.8 fl (7.4-10.4); PLATELET COUNT 181 K/mm3 (130-400); RED BLOOD COUNT 2.83 M/mm3 (4.20-5.60); REDCELL DISTRIBUTION WIDTH-CV 16.7 % (11.5-14.5)
[2020-11-25 04:37] LABS: ARTERIAL BLD GAS O2 SATURATION 97.2 % (92-100); ARTERIAL BLD GAS TCO2 CT 32.3; ARTERIAL BLOOD GAS BASE EXCESS 5.5 (-2-2); ARTERIAL BLOOD GAS HCO3 30.8 meq/L (22-26); ARTERIAL BLOOD GAS PCO2 49.3 mmHg (35-45); ARTERIAL BLOOD GAS PO2 94.3 mmHg (80-100); ARTERIAL BLOOD GAS pH 7.41 (7.35-7.45)
[2020-11-25 04:44] LABS: CALCIUM 8.4 mg/dL (8.4-10.2); CREATININE, serum 0.77 (0.66-1.25); MAGNESIUM 1.9 mg/dL (1.6-2.3); POTASSIUM 5.1 mmol/L (3.4-5.0)
[2020-11-25 04:47] LABS: HEMATOCRIT 25.1 % (42.0-52.0); HEMOGLOBIN 7.7 g/dl (13.5-18.0); MEAN CORPUSCULAR HEMOGLOBIN 27 pg (27.0-31.0)
[2020-11-25 05:15] LABS: ANISOCYTOSIS 1+; BAND 1 % (0-10); LYMPHOCYTE 11 % (20.0-51.0); NEUTROPHILS 86 % (42.0-75.2); PLATELET ESTIMATE NORMAL (NORMAL); POIKILOCYTOSIS 1+
--- NOTE | 2020-11-25 06:53 | NUR ---
NO CHANGE IN SSEDATION DUE TO PATIENT TOLERATING VENTILATOR CALM/ALERT.
--- NOTE | 2020-11-25 07:31 | NUR ---
MARILY UPDATED OVERNIGHT.
--- NOTE | 2020-11-25 07:40 | NUR ---
BEDSIDE SHIFT REPORT RECEIVED FROM JAROD HOLDER. PATIENT IN BED RESTING WITH EYES CLOSED, STILL SEDATED AND VENTILATED. RIGHT UPPER ARM PICC AND MILTON CATHETER STILL IN PLACE. FECAL MANAGEMENT SYSTEM REMOVED YESTERDAY. SEE GTT TITRATION FLOWSHEET. VSS.
[2020-11-25 12:41] LABS: CALCIUM 8.4 mg/dL (8.4-10.2); CREATININE, serum 0.77 (0.66-1.25); POTASSIUM 4.8 mmol/L (3.4-5.0)
--- NOTE | 2020-11-25 17:00 | NUR ---
HAVE BEEN TITRATING DOWN ON SEDATION ALL DAY. REACHED LOWEST AMOUNT POSSIBLE SINCE ADMISSION.
--- NOTE | 2020-11-25 18:06 | NUR ---
UPDATED PATIENT'S GIRLFRIEND ON PATIENT'S CURRENT STATUS
[2020-11-26] VITALS (663 sets, daily range): BP systolic 126–157; BP diastolic 66–94; PULSE 68–95; TEMP 97.7–99.5; O2SAT 70–100
[2020-11-26 05:10] LABS: ARTERIAL BLD GAS O2 SATURATION 94.4 % (92-100); ARTERIAL BLOOD GAS BASE EXCESS 7.5 (-2-2); ARTERIAL BLOOD GAS HCO3 31.7 meq/L (22-26); ARTERIAL BLOOD GAS PO2 71.5 mmHg (80-100); ARTERIAL BLOOD GAS pH 7.49 (7.35-7.45)
[2020-11-26 05:13] LABS: MEAN CELL VOLUME 89 fl (80.0-100.0); MEAN CORPUSCULAR HGB CONC 30 g/dl (33.0-37.0); PLATELET COUNT 181 K/mm3 (130-400); RED BLOOD COUNT 2.86 M/mm3 (4.20-5.60); REDCELL DISTRIBUTION WIDTH-CV 16.9 % (11.5-14.5)
[2020-11-26 05:21] LABS: HEMATOCRIT 25.5 % (42.0-52.0); HEMOGLOBIN 7.7 g/dl (13.5-18.0); MEAN CORPUSCULAR HEMOGLOBIN 27 pg (27.0-31.0)
[2020-11-26 05:36] LABS: CALCIUM 8.5 mg/dL (8.4-10.2); CREATININE, serum 0.78 (0.66-1.25); MAGNESIUM 1.8 mg/dL (1.6-2.3); PHOSPHOROUS 3.6 mg/dL (2.5-4.5); POTASSIUM 4.6 mmol/L (3.4-5.0)
[2020-11-26 10:40] LABS: ANISOCYTOSIS 1+; BAND 16 % (0-10); LYMPHOCYTE 12 % (20.0-51.0); NEUTROPHILS 72 % (42.0-75.2); PLATELET ESTIMATE NORMAL (NORMAL)
--- NOTE | 2020-11-26 13:45 | NUR ---
Spoke with Muna about procedure to exhange trach with ET tube today around 1700. discussed why we need to do this procedure and that it would be a temporary fix until we could get the correct trach in. Questions answered. Consent signed. Did let Muna know that if she would rather speak with ENT about this procedure that she could. She was okay with our conversation. Muna verbalized understanding.
--- NOTE | 2020-11-26 14:20 | NUR ---
Muna had more questions about todays procedure to exhange the trach with an ET tube. Questions answered. She is headed home and requested that we give her a call after surgery to give an update.
--- NOTE | 2020-11-26 21:19 | NUR ---
PATIENT SEDATION VACATION NOT PERFORMED DUE TO RESTLESSNESS FROM TRACH NOT FITTING PROPERLY; GURGLING NOISES AND EXTERNAL DRAINAGE FROM TRACH NOTED THROUGHOUT THE DAY. PATIENT WILL HAVE TRACH REPLACED THIS AFTERNOON.
--- NOTE | 2020-11-26 21:44 | NUR ---
PATIENT UNDERWENT HYPOGLYCEMIC PROTOCOL FOR BLOOD GLUCOSE OF 44; PER DR LYMAN GAVE 1 AMP D50 AND STARTED D5 1/2 NORMAL SALINE AT 50ML/HR TO CONTINUE UNTIL PATIENT WENT TO SURGERY. PATIENT'S TUBE FEEDING STOPPED THIS MORNING AND LEVEMIR WAS HELD PRIOR TO THIS EVENT.
--- NOTE | 2020-11-26 21:45 | NUR ---
Patient lightly sedated. Follows simple verbal commands appropriately. Coughs against the ventilator at times however, is mostly tolerating the ventilator well. VS stable; will continue to monitor.
--- NOTE | 2020-11-26 21:46 | NUR ---
PATIENT HAD TRACH REPLACED THIS AFTERNOON AT APPROX 1800; PREVIOUS GURGLING NOISES WERE LESSENED, ALTHOUGH STILL PRESENT ON AND OFF. SHOULD CONTINUE TO BE MONITORED.
[2020-11-27] VITALS (76 sets, daily range): BP systolic 88–131; BP diastolic 60–76; PULSE 69–83; TEMP 97.8–99.6; O2SAT 76–97
--- NOTE | 2020-11-27 04:15 | NUR ---
Provided with bed bath and linen change. Patient had a large loose BM at this time. Re-inserted rectal tube to preserve skin integrity. Will continue to monitor.
[2020-11-27 04:18] LABS: ARTERIAL BLD GAS O2 SATURATION 91.6 % (92-100); ARTERIAL BLD GAS TCO2 CT 27.8; ARTERIAL BLOOD GAS BASE EXCESS 2.3 (-2-2); ARTERIAL BLOOD GAS HCO3 26.6 meq/L (22-26); ARTERIAL BLOOD GAS PCO2 40.3 mmHg (35-45); ARTERIAL BLOOD GAS PO2 63.3 mmHg (80-100); ARTERIAL BLOOD GAS pH 7.44 (7.35-7.45)
[2020-11-27 07:12] LABS: BASO % 0.1 % (0.0-2.0); EOS # 0.4 (0.0-0.7); EOS % 4.1 % (0-4.0); GRAN # 6.6 (1.4-6.5); GRAN % 76.5 % (42.2-75.2); HEMOGLOBIN 7.1 g/dl (13.5-18.0); LYMPH # 1.2 (1.2-3.4); LYMPH % 13.8 % (20.0-51.0); MEAN CELL VOLUME 87 fl (80.0-100.0); MEAN CORPUSCULAR HEMOGLOBIN 27 pg (27.0-31.0); MEAN CORPUSCULAR HGB CONC 31 g/dl (33.0-37.0); MONO # 0.4 (0.1-0.6); MONO % 4.2 % (1.7-9.3); PLATELET COUNT 168 K/mm3 (130-400); RED BLOOD COUNT 2.65 M/mm3 (4.20-5.60); REDCELL DISTRIBUTION WIDTH-CV 16.9 % (11.5-14.5)
[2020-11-27 07:28] LABS: CALCIUM 8.2 mg/dL (8.4-10.2); CREATININE, serum 0.87 (0.66-1.25); POTASSIUM 4.1 mmol/L (3.4-5.0)
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
--- NOTE | 2020-11-27 08:00 | NUR ---
AMANDO AT BEDSIDE. DISCUSSED TRACH POSITIONAL. HE ENCOURAGED PADDING IT TO GET IN THE BEST POSITION THAT WE CAN.
--- NOTE | 2020-11-27 13:27 | NUR ---
picking table worker provided clinical information to Jarrod at [facility]. Jarrod states that [facility] can transport to [facility] on Tuesday and [facility] from [place] can transport next Tuesday. [facility] cannot accept on Tuesday due to their computer numerical control operator being off for the holiday. Attempting to find ambulance today.
--- NOTE | 2020-11-27 14:10 | NUR ---
Patient is accepted to [facility] in [place]. [facility] ambulance will transport today at 3:00. Worker spoke with life partner Mary Jane and advised.
--- NOTE | 2020-11-27 15:20 | NUR ---
PATIENT LEFT WITH [facility] TO [facility] [place] AT BEDSIDE TO SEE HIM PRIOR TO HIS DEAPRTURE. BELONGINGS SENT HOME WITH [facility].
--- NOTE | 2020-11-27 15:30 | NUR ---
REPORT CALLED TO ORQUIDEA OLIVERA AT [facility]
== END 2020-11-27 15:30 | DRG 4 ==
LOC: COL.ER 15:30 → ICU 19:30 → COL.ER 19:30 → ICU 10-25 17:54
PROVIDERS: Internal Medicine; Internal Medicine Adult Congenital Heart Disease; Internal Medicine Critical Care Medicine; Internal Medicine Pulmonary Disease; Internal Medicine Sleep Medicine; Nurse Practitioner Family; Personal Emergency Response Attendant; Physician Assistant; Student in an Organized Health Care Education/Training Program; Surgery; ADMIT Family Medicine
PROC: 02HV33Z Insertion of Infusion Device into Superior Vena Cava, Percutaneous Approach (ICD-10-PCS; 2020-10-22)
PROC: XW033E5 Introduction of Remdesivir Anti-infective into Peripheral Vein, Percutaneous Approach, New Technology Group 5 (ICD-10-PCS; 2020-10-24)
PROC: 0DH68UZ Insertion of Feeding Device into Stomach, Via Natural or Artificial Opening Endoscopic (ICD-10-PCS; 2020-11-12)
PROC: 0B110F4 Bypass Trachea to Cutaneous with Tracheostomy Device, Open Approach (ICD-10-PCS; principal; 2020-11-12 13:30)
PROC: 0BCB8ZZ Extirpation of Matter from Left Lower Lobe Bronchus, Via Natural or Artificial Opening Endoscopic (ICD-10-PCS; 2020-11-18)
PROC: 5A1955Z Respiratory Ventilation, Greater than 96 Consecutive Hours (ICD-10-PCS; 2020-11-22)
PROC: 0BH17EZ Insertion of Endotracheal Airway into Trachea, Via Natural or Artificial Opening (ICD-10-PCS; 2020-11-22)
DX: A41.9 Sepsis, unspecified organism (principal); R65.21 Severe sepsis with septic shock; J96.01 Acute respiratory failure with hypoxia; U07.1 COVID-19; J12.82 Pneumonia due to coronavirus disease 2019; I50.23 Acute on chronic systolic (congestive) heart failure; I21.A1 Myocardial infarction type 2; A04.72 Enterocolitis due to Clostridium difficile, not specified as recurrent; N17.9 Acute kidney failure, unspecified; E87.0 Hyperosmolality and hypernatremia; E87.1 Hypo-osmolality and hyponatremia; E87.2 Acidosis; I48.92 Unspecified atrial flutter; Z68.42 Body mass index [BMI] 45.0-49.9, adult; N39.0 Urinary tract infection, site not specified; D50.0 Iron deficiency anemia secondary to blood loss (chronic); I95.9 Hypotension, unspecified; G47.33 Obstructive sleep apnea (adult) (pediatric); F41.9 Anxiety disorder, unspecified; F32.9 Major depressive disorder, single episode, unspecified; J44.9 Chronic obstructive pulmonary disease, unspecified; E87.5 Hyperkalemia; E87.6 Hypokalemia; E11.65 Type 2 diabetes mellitus with hyperglycemia; E66.01 Morbid (severe) obesity due to excess calories; R50.9 Fever, unspecified
CPT/HCPCS: 99223-AI; 99232-AI; 99233-AI; 99239; A4314; A7521; C1751; C1892; C9113; J0282; J0330; J0360; J0692; J0696; J1100; J1450; J1644; J1650; J1815; J1940; J2060; J2250; J2270; J2405; J2543; J2704; J3010; J3370; J3475; J3480; J7030; J7040; J7050; J7060; J7120; J8540; P9016; P9047; Q0249; Q9967